=== PATIENT | male | born 1930 | race Caucasian/White ===

== ENCOUNTER 2017-02-21 16:55 | Observation (INO) ==
--- NOTE | 2017-02-21 17:07 | Emergency Department Note ---
Disposition Clinical Impression: Palpitations, Sinus tachycardia Chest pain Qualifiers: Chest pain type: other chest pain Qualified Code(s): R07.89 - Other chest pain Disposition: Still a Patient Condition: Fair Referrals: Ari Shine Jr, MD [Primary Care Provider] - Forms: ED Satisfaction Letter Time of Disposition: 19:12 Arrhythmia/Palpitations HPI - General Chief Complaint: ED Arrhythmia/Palpitations Stated Complaint: Palpaitions Time Seen by Provider: 02/21/17 16:56 Source: patient Mode of arrival: ambulatory Limitations: no limitations Nursing Notes Reviewed: Yes Vital Signs Reviewed: Yes - History of Present Illness HPI Narrative: 86-year-old male history of CAD s/p 1 stent and hypertension presents with palpitations. States for the past 3 days he has notices heart skips a beat and races. For the past 3 hours his noticed some associated dyspnea. Every time his heart races he coughs and feels much better. States it has been more intermittent and frequent. He denies any lightheadedness or syncope. Denies any chest pain. Denies any recent illness, cough, rhinorrhea, abdominal pain or nausea vomiting. He denies any other complaints. Denies any prior history of this. 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 On evaluation in the room patient is normal sinus rhythm 67 bpm. Within 5 minutes his heart rate immediately jump to 126 bpm, he states he starts to feel the palpitations. I asked him the cough and he immediately came back down. He states these episodes have been more frequent. He currently appears in no acute distress. Pt Subjective Complaint: rapid heart beat, "heart racing", irregular heart beat - Related Data Previous Rx's Medication Instructions Recorded Plavix 75 mg PO DAILY #30 03/17/15 Simvastatin 20 mg PO HS #30 03/17/15 Toprol Xl 50 mg PO DAILY #0 03/17/15 Allergies Allergy/AdvReac Type Severity Reaction Status Date / Time No Known Allergies Allergy Verified 09/27/16 04:54 All systems ED: reviewed and negative except as stated. Review of Systems: As Per HPI Constitutional: Denies: fever, chills ENT ED: Denies: congestion, dysphagia Cardiovascular: Reports: palpitations. Denies: chest pain, dyspnea on exertion Respiratory: Reports: dyspnea. Denies: cough Gastrointestinal: Denies: abdominal pain, nausea, vomiting Genitourinary: Denies: urgency, dysuria Musculoskeletal: Denies: back pain, neck pain Integumentary: Denies: rash, abrasion Neurological: Denies: headache Psychiatric: Denies: anxiety, depression Past Medical History - Past Medical History Attestation: Yes The following information was validated with the patient. Source: patient Medical history: Reports: arthritis, coronary artery disease, GERD, GI bleed, hyperlipidemia, hypertension, kidney stones, myocardial infarction, renal disease, other Surgical history: Reports: other (Abdominal laparotomy) Psychiatric history: Reports: no psych history - Social History Smoking Status: Never smoker Smokeless Tobacco Status: No Alcohol use: Reports: rarely Drug use: Reports: none Physical Exam - General Limitations: no limitations General appearance: alert, in no apparent distress - Head Head exam: atraumatic, normocephalic, normal inspection - Eye Eye exam: Present: normal appearance, PERRL, EOMI - ENT ENT exam: normal exam, normal oropharynx, mucous membranes moist - Neck Neck exam: Present: normal inspection, full ROM, trachea midline - Chest Chest inspection: Present: normal inspection, symmetric chest wall rise - Respiratory Respiratory exam: Present: normal lung sounds bilaterally. Absent: respiratory distress, wheezes - Cardiovascular Cardiovascular exam: Present: tachycardia, irregular rhythm, normal heart sounds. Absent: systolic murmur, diastolic murmur - Abdominal Exam Abdominal exam: Present: soft, Non-Tender, normal bowel sounds. Absent: tenderness, distention, guarding, rebound, rigidity - Extremities Exam Extremities exam: Present: normal inspection, full ROM, normal capillary refill. Absent: tenderness, pedal edema - Back Exam Back exam: Present: normal inspection, full ROM. Absent: tenderness - Neurological Exam Neurological exam: Present: alert, oriented X3 - Psychiatric Psychiatric exam: Present: normal affect, normal mood - Skin Skin exam: Present: warm, dry, intact, normal color Course - Reevaluation(s) Reevaluation #1: Patient continues to appear no acute distress. He continues to intermittently go in and out sinus rhythm and sinus tachycardia. Daughters in the room reports 5-6 years ago he had similar symptoms and was offered ablation versus medication. At this time concern that this may be more of a supraventricular tachycardia. Will check troponin, TSH, chemistries and likely admit. Patient remains hemodynamically stable. Reevaluation #2: Awaiting chemistries. Troponin is negative. CXR is unremarkable. He continues to go in and out of this tachycardia. Will sign out to nighttime physicians Dr. Leyva and Dr. Guidry for follow up of labs and admission. Time: 19:12 Vital Signs Temperature 98 F 02/21/17 16:57 Pulse Rate 80 02/21/17 16:57 Respiratory Rate 20 02/21/17 16:57 Blood Pressure 169/84 02/21/17 16:57 O2 Sat by Pulse Oximetry 100 02/21/17 16:57 Temperature 98 F 02/21/17 16:57 Pulse Rate 61 02/21/17 19:02 Respiratory Rate 12 02/21/17 19:02 Blood Pressure 183/92 02/21/17 19:02 O2 Sat by Pulse Oximetry 99 02/21/17 19:02 Oxygen Delivery Oxygen Delivery Nasal Cannula Arrhythmia/Palpitations - MDM Narrative Medical decision making narrative: I examined this patient and my medical decision-making was reviewed with the Resident Physician. I agree with the documented findings, disposition and treatment plan as described except to the extent set forth below. Patient was seen and evaluated on arrival with EMS and Dr. Hernandez, I agree with his evaluation and management plan, supervised the care of the patient's stay. Patient comes in today with what he feels a fluttering in his chest. He denies any chest pain or shortness of breath he said it only lasts for a little while he says when he coughs that we use ago away and that happened in the squad. Here he has a normal sinus rhythm on the monitor now but then it speeds up and it looks like a sinus tach and then he coughs and it goes away. He denies any calf pain denies a shortness of breath or vomiting. No new medications. He has had cardiac issues in the past and sees cardiology here. We will order a workup on him reassess him. He initially had 3 EKGs showing sinus rhythm and sinus tach. And he can feel it when he goes in to the sinus tach. Denies chest pain. This documentation is done with the assistance of [employer] dictation software. Though efforts have been made to ensure accuracy, there may be inaccuracies in truck striker or spelling or other typographical errors. 1800 hrs.: Family thinks he has had this in the past before. Were waiting on labs come back. The labs informed us that the chemistry analyzer is down. So primarily really get a CBC and a troponin at this time. Chest X-Ray 02/21/17 16:58 IMPRESSION: Negative portable chest. D/ / Jaguar Solorzano MD / Jaguar Solorzano MD Interpreting Provider: Jaguar Solorzano MD 1820 hrs.: Chest x-ray is back and unremarkable. Chemistry analyzer is still down. We will speak with hospitalist for admission. Impression is chest pressure and palpitations, rule out arrhythmia and ACS. - Medical Records Medical records reviewed: Yes I reviewed the patient's medical records. - Lab Data Lab results reviewed: Yes I reviewed the patient's lab results. Result diagrams: 02/21/17 17:26 02/21/17 17:26 Lab Results 02/21/17 02/21/17 02/21/17 Range/Units 17:26 17:26 17:26 WBC 6.2 (4.3-11.1) K/mcL RBC 4.56 (4.19-5.50) M/mcL Hgb 12.1 L (12.9-16.9) g/dL Hct 38.4 (37.5-50.1) % MCV 84.2 (83.0-100.0) fL MCH 26.5 L (28.0-33.3) pg MCHC 31.5 L (31.6-35.5) g/dL RDW 14.7 H (11.5-14.5) % Plt Count 174 (140-400) K/mcL MPV 9.9 (9.4-12.4) fL Immature Gran % 0.3 (0-4) % Seg Neutrophils % 61.1 % Lymphocytes % 23.6 % Monocytes % 8.8 % Eosinophils % 5.9 % Basophils % 0.3 % Neutrophils # 3.8 (1.6-8.9) K/mcL Lymphocytes # 1.5 (0.6-4.6) K/mcL Monocytes # 0.6 (0.0-1.3) K/mcL Eosinophils # 0.4 (0.0-0.6) K/mcL Basophils # 0.0 (0.0-0.2) K/mcL PT 11.7 (9.4-12.1) Seconds INR 1.1 APTT 28.3 (26.0-36.0) Seconds Sodium 141 (136-145) mEq/L Potassium 3.8 (3.5-4.5) mEq/L Chloride 110 H (98-109) mEq/L Carbon Dioxide 23 (19-29) mEq/L BUN 13 (8-26) mg/dL Creatinine 1.06 (0.72-1.25) mg/dL Est GFR ( Amer) > 60 (> 60) Est GFR (Non-Af Amer) > 60 (> 60) BUN/Creatinine Ratio 12 (6-26) Glucose 117 H (70-99) mg/dL Calculated Osmolality 293 (280-300) Calcium 8.7 (8.6-10.8) mg/dL Troponin I (0-0.03) ng/mL 02/21/17 Range/Units 17:26 WBC (4.3-11.1) K/mcL RBC (4.19-5.50) M/mcL Hgb (12.9-16.9) g/dL Hct (37.5-50.1) % MCV (83.0-100.0) fL MCH (28.0-33.3) pg MCHC (31.6-35.5) g/dL RDW (11.5-14.5) % Plt Count (140-400) K/mcL MPV (9.4-12.4) fL Immature Gran % (0-4) % Seg Neutrophils % % Lymphocytes % % Monocytes % % Eosinophils % % Basophils % % Neutrophils # (1.6-8.9) K/mcL Lymphocytes # (0.6-4.6) K/mcL Monocytes # (0.0-1.3) K/mcL Eosinophils # (0.0-0.6) K/mcL Basophils # (0.0-0.2) K/mcL PT (9.4-12.1) Seconds INR APTT (26.0-36.0) Seconds Sodium (136-145) mEq/L Potassium (3.5-4.5) mEq/L Chloride (98-109) mEq/L Carbon Dioxide (19-29) mEq/L BUN (8-26) mg/dL Creatinine (0.72-1.25) mg/dL Est GFR ( Amer) (> 60) Est GFR (Non-Af Amer) (> 60) BUN/Creatinine Ratio (6-26) Glucose (70-99) mg/dL Calculated Osmolality (280-300) Calcium (8.6-10.8) mg/dL Troponin I 0.01 (0-0.03) ng/mL - Radiology Data Radiology results reviewed: Yes I reviewed the patient's radiology results. Chest X-Ray 02/21/17 16:58 IMPRESSION: Negative portable chest. D/ / Jaguar Solorzano MD / Jaguar Solorzano MD Interpreting Provider: Jaguar Solorzano MD - EKG Data EKG attestation: Yes I reviewed and interpreted this EKG. EKG results narrative: We have obtained 3 EKGs. 1st EKG performed 1702 sinus rhythm 67 bpm normal axis , good R wave progression, no ST elevations or depression. No T wave inversions. Intervals are within normal limits. Another EKG performed immediately after 1704 sinus tachycardia [address] depression seen and septal leads with T wave inversion in inferior leads. Then another EKG performed 1705 shows sinus tachycardia [address] depression the T waves are upright in inferior leads. There is no old EKG for comparison. S.B.A.R. - S.B.A.R. Situation: Demographics, MOA Background: Presenting Complaint, Relevant PMH, Meds, & Allergies Assessment: Vital Signs, Course and respsone to treatment, Exam Concerns, Patient/Family Expectation, Pertinant Lab Results, Outstanding Labs Recommendation: Barrier(s) to disposition, Recommendation based on pending studies, treatments, or consults S.B.A.R. Report Given to: Dr. Leyva and Chao S.B.ATatum Repor Time: 19:00
[2017-02-21 17:34] LABS: Basophils % 0.3 %; Eosinophils # 0.4 K/mcL (0.0-0.6); Eosinophils % 5.9 %; Hematocrit 38.4 % (37.5-50.1); Hemoglobin 12.1 g/dL (12.9-16.9); Immature Granulocytes % 0.3 % (0-4); Lymphocytes # 1.5 K/mcL (0.6-4.6); Lymphocytes % 23.6 %; Mean Corpuscular HGB Conc 31.5 g/dL (31.6-35.5); Mean Corpuscular Hemoglobin 26.5 pg (28.0-33.3); Mean Corpuscular Volume 84.2 fL (83.0-100.0); Mean Platelet Volume 9.9 fL (9.4-12.4); Monocytes # 0.6 K/mcL (0.0-1.3); Monocytes % 8.8 %; Neutrophils # 3.8 K/mcL (1.6-8.9); Platelet Count 174 K/mcL (140-400); Red Blood Count 4.56 M/mcL (4.19-5.50); Red Cell Distribution Width 14.7 % (11.5-14.5); Segmented Neutrophils % 61.1 %
[2017-02-21 17:40] LABS: INR 1.1; Prothrombin Time 11.7 Seconds (9.4-12.1)
[2017-02-21 17:43] LABS: Activated Partial Thrombo Time 28.3 Seconds (26.0-36.0)
[2017-02-21 19:04] LABS: BUN/Creatinine Ratio 12 (6-26); Blood Urea Nitrogen 13 mg/dL (8-26); Calcium 8.7 mg/dL (8.6-10.8); Carbon Dioxide 23 mEq/L (19-29); Chloride 110 mEq/L (98-109); Glucose 117 mg/dL (70-99); Osmolality,Calculated 293 (280-300); Potassium 3.8 mEq/L (3.5-4.5); Sodium 141 mEq/L (136-145); eGFR For African Americans > 60 (> 60); eGFR For Non-African Americans > 60 (> 60)
--- NOTE | 2017-02-21 19:27 | Emergency Department Note ---
START Narrative - START START: I examined this patient and my medical decision-making was reviewed with the Resident Physician. I agree with the documented findings, disposition and treatment plan as described except to the extent set forth below. 86-year-old male presented with palpitations and EKG abnormalities. Patient had some ST depressions. Coughing seems to help relieve his tachycardia transiently. His labs are unremarkable. Chest x-ray was negative. I feel based on the EKG undermines the patient needs anticoagulated for tonight. Lovenox.
[2017-02-21 19:28] LABS: Thyroid Stimulating Hormone 0.712 mcIU/mL (0.350-4.840)
[2017-02-21] MEDS ORDERED: Aspirin 325 MG TABLET PO ONE (19:28)
[2017-02-21] MEDS ORDERED: *HR* Enoxaparin 80 MG/0.8 ML SYRINGE SQ STA (19:29)
--- NOTE | 2017-02-21 19:48 | Emergency Department Note ---
Disposition Clinical Impression: Palpitations, Sinus tachycardia Chest pain Qualifiers: Chest pain type: other chest pain Qualified Code(s): R07.89 - Other chest pain Disposition: Admitted As Inpatient Condition: Good Referrals: Ari Shine Jr, MD [Primary Care Provider] - Forms: ED Satisfaction Letter General Adult HPI - General Chief complaint: ED Arrhythmia/Palpitations Stated complaint: Palpaitions Time Seen by Provider: 02/21/17 16:56 Source: patient Mode of arrival: ambulatory Limitations: no limitations Nursing Notes Reviewed: Yes Vital Signs Reviewed: Yes - History of Present Illness Pain Scale: 0 - Related Data Previous Rx's Medication Instructions Recorded Plavix 75 mg PO DAILY #30 03/17/15 Simvastatin 20 mg PO HS #30 03/17/15 Toprol Xl 50 mg PO DAILY #0 03/17/15 Allergies Allergy/AdvReac Type Severity Reaction Status Date / Time No Known Allergies Allergy Verified 09/27/16 04:54 Constitutional: Denies: fever, chills ENT ED: Denies: congestion, dysphagia Cardiovascular: Reports: palpitations. Denies: chest pain, dyspnea on exertion Respiratory: Reports: dyspnea. Denies: cough Gastrointestinal: Denies: abdominal pain, nausea, vomiting Genitourinary: Denies: urgency, dysuria Musculoskeletal: Denies: back pain, neck pain Integumentary: Denies: rash, abrasion Neurological: Denies: headache Psychiatric: Denies: anxiety, depression Past Medical History - Past Medical History Medical history: Reports: arthritis, coronary artery disease, GERD, GI bleed, hyperlipidemia, hypertension, kidney stones, myocardial infarction, renal disease, other Surgical history: Reports: other (Abdominal laparotomy) Psychiatric history: Reports: no psych history - Social History Smoking Status: Never smoker Smokeless Tobacco Status: No Alcohol use: Reports: rarely Drug use: Reports: none Physical Exam - General Limitations: no limitations General appearance: alert, in no apparent distress Course Course Narrative: Patient was taken over at signout from the day team. Patient has had intermittent palpitations over the last week that have resolved with coughing. Patient's initial EKG shows sinus rhythm with ventricular rate of 67. No significant ST changes. Patient's repeat EKG during an episode shows sinus tachycardia at a rate of 126. No specific SVT. Mild ST depressions in the lateral leads. T-wave inversions in the inferior leads. EKG is narrow complex. Symptoms resolved after coughing episode. Patient's electrolyte panel is pending. The patient's electrodes are normal he will need admitted to the hospitalist service for further evaluation of the possible etiology. electrolytes normal. Patient does have some mild depressions at the tachycardic rate of 126. We will give the patient aspirin and a dose of Lovenox. Patient has been admitted to the hospitalist service. Dr. Ardon. - Consultations Consultation #1: Discussed with hospital at 1935. Patient accepted for admission. Vital Signs Temperature 98 F 02/21/17 16:57 Pulse Rate 80 02/21/17 16:57 Respiratory Rate 20 02/21/17 16:57 Blood Pressure 169/84 02/21/17 16:57 O2 Sat by Pulse Oximetry 100 02/21/17 16:57 Temperature 98 F 02/21/17 16:57 Pulse Rate 61 02/21/17 19:02 Respiratory Rate 12 02/21/17 19:02 Blood Pressure 183/92 02/21/17 19:02 O2 Sat by Pulse Oximetry 99 02/21/17 19:02 Oxygen Delivery Oxygen Delivery Nasal Cannula Medical Decision Making - Lab Data Result diagrams: 02/21/17 17:26 02/21/17 17:26 Lab Results 02/21/17 02/21/17 02/21/17 Range/Units 17:26 17:26 17:26 WBC 6.2 (4.3-11.1) K/mcL RBC 4.56 (4.19-5.50) M/mcL Hgb 12.1 L (12.9-16.9) g/dL Hct 38.4 (37.5-50.1) % MCV 84.2 (83.0-100.0) fL MCH 26.5 L (28.0-33.3) pg MCHC 31.5 L (31.6-35.5) g/dL RDW 14.7 H (11.5-14.5) % Plt Count 174 (140-400) K/mcL MPV 9.9 (9.4-12.4) fL Immature Gran % 0.3 (0-4) % Seg Neutrophils % 61.1 % Lymphocytes % 23.6 % Monocytes % 8.8 % Eosinophils % 5.9 % Basophils % 0.3 % Neutrophils # 3.8 (1.6-8.9) K/mcL Lymphocytes # 1.5 (0.6-4.6) K/mcL Monocytes # 0.6 (0.0-1.3) K/mcL Eosinophils # 0.4 (0.0-0.6) K/mcL Basophils # 0.0 (0.0-0.2) K/mcL PT 11.7 (9.4-12.1) Seconds INR 1.1 APTT 28.3 (26.0-36.0) Seconds Sodium 141 (136-145) mEq/L Potassium 3.8 (3.5-4.5) mEq/L Chloride 110 H (98-109) mEq/L Carbon Dioxide 23 (19-29) mEq/L BUN 13 (8-26) mg/dL Creatinine 1.06 (0.72-1.25) mg/dL Est GFR ( Amer) > 60 (> 60) Est GFR (Non-Af Amer) > 60 (> 60) BUN/Creatinine Ratio 12 (6-26) Glucose 117 H (70-99) mg/dL Calculated Osmolality 293 (280-300) Calcium 8.7 (8.6-10.8) mg/dL Troponin I (0-0.03) ng/mL TSH 0.712 (0.350-4.840) mcIU/mL 02/21/17 Range/Units 17:26 WBC (4.3-11.1) K/mcL RBC (4.19-5.50) M/mcL Hgb (12.9-16.9) g/dL Hct (37.5-50.1) % MCV (83.0-100.0) fL MCH (28.0-33.3) pg MCHC (31.6-35.5) g/dL RDW (11.5-14.5) % Plt Count (140-400) K/mcL MPV (9.4-12.4) fL Immature Gran % (0-4) % Seg Neutrophils % % Lymphocytes % % Monocytes % % Eosinophils % % Basophils % % Neutrophils # (1.6-8.9) K/mcL Lymphocytes # (0.6-4.6) K/mcL Monocytes # (0.0-1.3) K/mcL Eosinophils # (0.0-0.6) K/mcL Basophils # (0.0-0.2) K/mcL PT (9.4-12.1) Seconds INR APTT (26.0-36.0) Seconds Sodium (136-145) mEq/L Potassium (3.5-4.5) mEq/L Chloride (98-109) mEq/L Carbon Dioxide (19-29) mEq/L BUN (8-26) mg/dL Creatinine (0.72-1.25) mg/dL Est GFR ( Amer) (> 60) Est GFR (Non-Af Amer) (> 60) BUN/Creatinine Ratio (6-26) Glucose (70-99) mg/dL Calculated Osmolality (280-300) Calcium (8.6-10.8) mg/dL Troponin I 0.01 (0-0.03) ng/mL TSH (0.350-4.840) mcIU/mL
--- NOTE | 2017-02-21 21:41 | Internal Med History&Physical ---
Date of Encounter: 02/21/17 Time of Encounter: 22:00 Assessment and Plan (1) Stable angina Current visit: Yes Status: Acute Typical chest pain symptoms with location being substernal, occurring with exertion, and relieved with ASA. Last echocardiogram done on 10/25/16 shows LVEF of 55% with mild MR, TR, pulmonic regurgitation, and pulmonary HTN. Nuclear stress test done on 10/25/16 shows negative for ischemia but did show some signs of an ectopic atrial rhythm at rest. Current EKG shows no signs of ST elevations. There are some lateral ST-depressions shows are old when compared to EKG from 09/27/16. Troponin was negative. EKG shows evidence of possible atrial flutter vs. atrial tachycardia. KARI score of 3. Wells criteria score of 1.5 or low risk group: 1.3% chance of PE in an ED population. - Consult ot cardiology. - Lovenox 40 mg SQ qd. - Cardiac telemetry. - Continue home BP meds of plavix, toprol, and diltiazem. - Trend troponins. (2) Arrhythmia Current visit: Yes Status: Acute Possible atrial flutter vs. atrial tachycardia. - Consult to cardiology. - Resumed home BP meds of toprol and diltiazem. - Ordered Magnesium lab level. Qualifiers: Arrhythmia type: unspecified cardiac arrhythmia Qualified Code(s): I49.9 - Cardiac arrhythmia, unspecified (3) Palpitations Current visit: Yes Status: Acute (4) Hypertension Current visit: No Status: Acute BP of 184/90 on examination. - Resumed home BP meds of Diltiazem and toprol. - Added lisinopril 10 mg PO qd. Qualifiers: Hypertension type: unspecified Qualified Code(s): I10 - Essential (primary ) hypertension (5) Coronary artery disease Current visit: No Status: Acute Risk factors for CAD inlcude age, history of HTN, history of HLD, and history of previous PA. Qualifiers: Coronary Disease-Associated Artery/Lesion type: jena artery [place] vs. transplanted heart: jena heart Associated angina: with stable angina Qualified Code(s): I25.118 - Atherosclerotic heart disease of jena coronary artery with other forms of angina pectoris (6) Hyperlipidemia Current visit: Yes Status: Acute - Lipid panel ordered. - Home med of Simvastatin resumed. Qualifiers: Hyperlipidemia type: unspecified Qualified Code(s): E78.5 - Hyperlipidemia , unspecified (7) DVT prophylaxis Current visit: Yes Status: Acute - On lovenox 40 mg SQ qd. Internal Medicine - H&P: HPI Chief complaint: Palpitations Admitted From: Emergency Dept History of present illness: Mr. Craven is a 86 year old male with a PMHx of previous PA (1992), CAD, HTN, and HLD, with a PSHx of coronary artery stent (2009) and gastric bypass that presents for palpitations for 1 week. He describes his symptoms occurring at rest, lasts less than a minute, and is immediately relieved with coughing. He says he his palpitations have been progressively becoming more frequent, citing up to 10 episodes a day. He denies any chest pain, SOB, syncope, dizziness, vision changes, TERRY, or light-headedness with these episodes. Patient also began to mention that on separate incidents that he usually experiences minor chest pain and SOB after walking a mile. The pain is pressure like and is relieved after he takes ASA. Patient was given lovenox and ASA in the ED. Patient's senior manager asset protection is Dr. Barbosa. Past Med Surg Social Fam HX - Past Medical History Medical history: arthritis, coronary artery disease, GERD, GI bleed, hyperlipidemia, hypertension, kidney stones, myocardial infarction, renal disease, other Psychiatric history: no psych history - Past Surgical History Surgical History: other - Social History Smoking Status: Never smoker Smokeless Tobacco Status: No Alcohol use: rarely Drug use: none - Family History Mother Adopted: No Family Member Ethnicity: Non- Living Status: Cause of : heart attack Hx Family Cardiac Disorders: Yes (mother, heart attack) Hx Family Respiratory Disorders: No Hx Family Cancer: No Hx Family GI Disorders: No Hx Family Genitourinary Disorders: No Hx Family Endocrine Disorder: No Hx Family Musculoskeletal Disorders: No Hx Family Neuromuscular Disorders: No Hx Family Neurologic Disorders: No Hx Family HEENT Disorders: No Hx Family Autoimmune Disorders: No Hx Family Reproductive Disorders: No Hx Family Psychosocial Disorders: No Hx Family Medical Disorders: No Internal Medicine - H&P: Meds Clopidogrel [Plavix] 75 mg PO DAILY 02/21/17 [History] Diltiazem HCl [Diltiazem ER] 120 mg PO DAILY 02/21/17 [History] Metoprolol Succinate 50 mg PO DAILY 02/21/17 [History] [place] 80 mg PO DAILY 02/21/17 [History] Simvastatin [Zocor] 40 mg PO DAILY 02/21/17 [History] 3 Allergy/AdvReac Type Severity Reaction Status Date / Time No Known Allergies Allergy Verified 02/21/17 19:58 All Systems PM: A 10-system review of systems was performed and is negative for pertinent findings except as documented above in the HPI. - Constitutional Constitutional: no fever(s), no weakness - EENT Eyes: no blurry vision - Cardiovascular Cardiovascular ROS IM: chest pain (With exertion. ), dyspnea on exertion, palpitations, no lightheadedness, no syncope - Respiratory Respiratory: dyspnea on exertion - Gastrointestinal Gastrointestinal: no abdominal pain, no change in bowel habits, no constipation , no diarrhea, no dyspepsia, no heartburn, no loose stools, no nausea, no vomiting - Neurological Neurological ROS: no dizziness, no headache(s), no weakness - Constitutional Vitals: Temp Pulse Resp BP Pulse Ox 98.2 F 63 16 183/93 98 02/21/17 20:43 02/21/17 20:43 02/21/17 20:43 02/21/17 20:43 02/21/17 20:43 General appearance: Present: A&O X 3, pleasant, no acute distress, answers questions appropriately - Eye Eye exam: Present: EOMI, PERRL - ENT ENT exam: Present: mucous membranes moist - Respiratory Respiratory exam: Present: CTAB. Absent: rales, rhonchi, wheezes, tachypnea - Cardiovascular Cardiovascular exam: Present: RRR, +S1, +S2. Absent: JVD, tachycardia - GI/Abdominal GI/Abdominal exam: Present: normal bowel sounds, soft. Absent: distended, guarding, rebound, tenderness - Extremities Exam Extremities exam: Present: full ROM, normal capillary refill, normal inspection , radial pulses palpable and symmetrical. Absent: cyanotic, pedal edema, tenderness Additional comments: Pedal pulses intact and symmetrical bilaterally. - Neurological Exam Neurological exam: Present: alert, CN II-XII intact, oriented X3, reflexes normal, no focal deficits, strengths equal and symetr throughout. Absent: motor sensory deficit, speech deficit Internal Med - H&P Results - Labs CBC & Chem 7: 02/21/17 17:26 02/21/17 17:26
[2017-02-21 21:58] LABS: Chol/HDL Ratio 3.7 (0-4.9)
[2017-02-21] MEDS: Diltiazem CD (24hr) 120 MG CAPSULE PO SCH (22:04)
[2017-02-21] MEDS: Metoprolol XL (24 HR) Succ 50 MG TAB.ER.24H PO SCH (22:04)
--- NOTE | 2017-02-21 22:11 | Event Note ---
Date of Encounter: 02/21/17 Time of Encounter: 22:07 Patient seen and examined with manager medical affairs. Patient presents with episodes of palpitations the past 2 days. These were captured during electrocardiogram possibilities include atrial flutter versus atrial tachycardia. It seems he had not an event about 6 years ago and was started on antiarrhythmic medications. Patient is on metoprolol 50 mg and Cardizem 120 mg daily will continue. He had received a dose of full dose Lovenox in the emergency room. Appreciate cardiology input to decide on this cardiac rhythm whetaher he needs long-term anticoagulants are not if this is atrial flutter. Patient also has history of chronic stable angina. He experiences a 10 minute episodes of retrosternal chest pain after he walks a mile every day. He is on Plavix. He had prior PCI 8 years ago. Full code. Observation admisison
[2017-02-22 01:43] LABS: BUN/Creatinine Ratio 13 (6-26); Blood Urea Nitrogen 13 mg/dL (8-26); Calcium 8.5 mg/dL (8.6-10.8); Carbon Dioxide 21 mEq/L (19-29); Chloride 111 mEq/L (98-109); Glucose 120 mg/dL (70-99); Magnesium 1.8 mg/dL (1.6-2.6); Osmolality,Calculated 295 (280-300); Potassium 3.7 mEq/L (3.5-4.5); Sodium 142 mEq/L (136-145); eGFR For African Americans > 60 (> 60); eGFR For Non-African Americans > 60 (> 60)
[2017-02-22 01:51] LABS: Basophils % 0.3 %; Eosinophils # 0.3 K/mcL (0.0-0.6); Eosinophils % 4.9 %; Hematocrit 34.5 % (37.5-50.1); Hemoglobin 10.7 g/dL (12.9-16.9); Immature Granulocytes % 0.3 % (0-4); Lymphocytes % 29.6 %; Mean Corpuscular Hemoglobin 26.2 pg (28.0-33.3); Mean Corpuscular Volume 84.6 fL (83.0-100.0); Mean Platelet Volume 9.8 fL (9.4-12.4); Monocytes # 0.6 K/mcL (0.0-1.3); Monocytes % 8.4 %; Neutrophils # 3.8 K/mcL (1.6-8.9); Platelet Count 172 K/mcL (140-400); Red Blood Count 4.08 M/mcL (4.19-5.50); Red Cell Distribution Width 14.8 % (11.5-14.5); Segmented Neutrophils % 56.5 %
[2017-02-22] MEDS ORDERED: *HR* Enoxaparin 40 MG/0.4 ML SYRINGE SQ SCH ×2 (06:00→08:00)
[2017-02-22] MEDS ORDERED: Enoxaparin Weight Dosing SQ SCH (06:00)
[2017-02-22] MEDS ORDERED: *HR* Enoxaparin 80 MG/0.8 ML SYRINGE SQ SCH (08:00)
--- NOTE | 2017-02-22 10:33 | Electrophysiology Consult Note ---
Date of Encounter: 02/22/17 Time of Encounter: 10:25 Assessment and Plan (1) PAT (paroxysmal atrial tachycardia) Current Visit: Yes Status: Acute Has a long history, diagnosed several years ago. Has been given cardizem in past but does not think he is taking it. Would recommend restarting. Discussion w patient/family: The assessment and plan as outlined above was discussed with the patient and/or family members who expressed understanding and agreement. All questions were answered. Thank you for involving us in the care of your patient. Please call with any questions. History of Present Illness Consult date: 02/22/17 Requesting physician: Dea Jarrell Consult reason: Palpitations Chief complaint: Palpitations History of present illness: Mr. Craven is a 86 year old male with a history of CAD, HTN and atrial tachycardia. He presented with paplitations which he has had for several years , he has a history of ectopic atrial tachycardia. He has been prescribed cardizem in the past but believes he stopped taking it. Past Med Surg Social Fam HX - Past Medical History Medical history: arthritis, coronary artery disease, GERD, GI bleed, hyperlipidemia, hypertension, kidney stones, myocardial infarction, renal disease, other Psychiatric history: no psych history - Past Surgical History Surgical History: other - Social History Smoking Status: Never smoker Smokeless Tobacco Status: No Alcohol use: rarely Drug use: none - Family History Mother Adopted: No Family Member Ethnicity: Non- Living Status: Cause of : heart attack Hx Family Cardiac Disorders: Yes (mother, heart attack) Hx Family Respiratory Disorders: No Hx Family Cancer: No Hx Family GI Disorders: No Hx Family Genitourinary Disorders: No Hx Family Endocrine Disorder: No Hx Family Musculoskeletal Disorders: No Hx Family Neuromuscular Disorders: No Hx Family Neurologic Disorders: No Hx Family HEENT Disorders: No Hx Family Autoimmune Disorders: No Hx Family Reproductive Disorders: No Hx Family Psychosocial Disorders: No Hx Family Medical Disorders: No Medications and Allergies Clopidogrel [Plavix] 75 mg PO DAILY 02/21/17 [History] Diltiazem HCl [Diltiazem ER] 120 mg PO DAILY 02/21/17 [History] Metoprolol Succinate 50 mg PO DAILY 02/21/17 [History] Saw [place] 80 mg PO DAILY 02/21/17 [History] Simvastatin [Zocor] 40 mg PO DAILY 02/21/17 [History] 3 Allergy/AdvReac Type Severity Reaction Status Date / Time No Known Allergies Allergy Verified 02/21/17 19:58 All Systems Review: A 10-system review of systems was performed and is negative for pertinent findings except as documented above in the HPI. Physical Examination Vital Signs, Last 4 Hours Temp Pulse Resp BP Pulse Ox 02/22/17 07:01 98.6 F 59 16 137/69 96 General: Conversant, No Apparent Distress HEENT: Atraumatic, Normocephaly, Mucus Membranes Moist Neck: No JVD, Normal carotid pulses Cardiac: Reg Rate and Rhythm, Normal S1 and S2, No Murmur Lungs: Normal Breath Sounds, No Wheeze, Rales, Rhonchi Neuro: Alert and responsive, No focal deficits noted Abdomen: Soft, Non-Tender Skin: No rashes noted on visualized skin Extremities: No Clubbing, No Cyanosis, No Edema, Normal Pulses Results 02/22/17 00:24 02/22/17 00:24 Lab Results 02/22/17 02/22/17 02/22/17 00:24 00:24 00:24 WBC 6.7 Hgb 10.7 L Hct 34.5 L Plt Count 172 Sodium 142 Potassium 3.7 Chloride 111 H Carbon Dioxide 21 BUN 13 Creatinine 1.00 Glucose 120 H Calcium 8.5 L Magnesium 1.8 Troponin I 0.02 02/22/17 05:13 WBC Hgb Hct Plt Count Sodium Potassium Chloride Carbon Dioxide BUN Creatinine Glucose Calcium Magnesium Troponin I 0.01 - EKG Interpretation EKG results cardiology: other (Atrial tachycardia) Consult Discharge Plan - Plan Referrals: Ari Shine Jr, MD [Primary Care Provider] -
[2017-02-22 10:46] VITALS: BP 142/70
[2017-02-22] MEDS: Diltiazem CD (24hr) 120 MG CAPSULE PO SCH (11:00)
[2017-02-22] MEDS: Metoprolol XL (24 HR) Succ 50 MG TAB.ER.24H PO SCH (11:02)
--- NOTE | 2017-02-22 15:45 | Discharge Summary ---
Date of Encounter: 02/22/17 Time of Encounter: 15:39 - Discharge Diagnosis (1) Chest pain Priority: Primary Status: Resolved Qualifiers: Chest pain type: unspecified Qualified Code(s): R07.9 - Chest pain, unspecified (2) PAT (paroxysmal atrial tachycardia) Priority: Primary Status: Resolved (3) Coronary artery disease Priority: Secondary Status: Chronic Qualifiers: Coronary Disease-Associated Artery/Lesion type: [place] artery [place] vs. transplanted heart: [place] heart Associated angina: with stable angina Qualified Code(s): I25.118 - Atherosclerotic heart disease of [place] coronary artery with other forms of angina pectoris (4) Hyperlipidemia Priority: Secondary Status: Chronic Qualifiers: Hyperlipidemia type: unspecified Qualified Code(s): E78.5 - Hyperlipidemia , unspecified - Discharge Medications Home Medications: Clopidogrel [Plavix] 75 mg PO DAILY 02/21/17 [History] Diltiazem HCl [Diltiazem ER] 120 mg PO DAILY 02/21/17 [History] Metoprolol Succinate 50 mg PO DAILY 02/21/17 [History] Saw [place] 80 mg PO DAILY 02/21/17 [History] Simvastatin [Zocor] 40 mg PO DAILY 02/21/17 [History] Allergies/Adverse Reactions: 3 Allergy/AdvReac Type Severity Reaction Status Date / Time No Known Allergies Allergy Verified 02/21/17 19:58 Date of admission: 02/21/17 20:08 Primary care physician: Ari Shine Jr, MD Consults: 02/21/17 21:20 Consult to Cardiology [CONS] Routine Comment: Consulting Provider: Cardiology Sandra Reason for Consult: Possible Atrial flutter/atrial tachy. Stable angina. Call Completed: No - Patient Status Disposition: Home, Self-Care Condition: Good - Discharge Instructions Follow Up With: Ari Shine Jr, MD [Primary Care Provider] - Additional Instructions: f/u with your Roulette Dealer Dr. Barbosa in 2 weeks Please continue taking Cardizem. - Diet and Activity Activity: increase activity as tolerated Diet: low salt diet Hospital course: Mr. Craven is a 86 year old male with a PMHx of previous [place] (1992), CAD, HTN, and HLD, with a PSHx of coronary artery stent (2009) and gastric bypass that presents for palpitations for 1 week. He describes his symptoms occurring at rest, lasts less than a minute, and is immediately relieved with coughing. He says he his palpitations have been progressively becoming more frequent, citing up to 10 episodes a day. Pt happened to have sinus tachycardia with HR @ 119. Pt was admitted in the hospital and placed him on surveillance monitor. No acute events noticed on monitor. His serial troponins are negative. Resumed his home medications Metoprolol and Cardizem. Apparently pt stop taking his Cardizem at home which might triggered current episode. Pt was seen by Roulette Dealer who recommend to continue Cardizem and cleared him to go home today. His recent 2D Echo from 11/07 showed preserved LVEF 55%. Will d/c him home in stable condition today. Pt stated he does have Cardizem tabs at home, do not need Rx. - Time Spent with Patient Total time spent providing and/or coordinating discharge services: - Constitutional Vitals: Temp Pulse Resp BP Pulse Ox 97.8 F 57 16 142/70 97 02/22/17 10:45 02/22/17 10:45 02/22/17 10:45 02/22/17 10:45 02/22/17 10:45 General appearance: Present: A&O X 3, pleasant, no acute distress, answers questions appropriately - Head Head exam: Present: atraumatic, normal inspection - Neck Neck exam general surgery: Present: supple - Respiratory Respiratory exam: Present: decreased breath sounds. Absent: respiratory distress, rhonchi, wheezes - Cardiovascular Cardiovascular exam: Present: RRR, +S1, +S2. Absent: systolic murmur - GI/Abdominal GI/Abdominal exam: Present: normal bowel sounds, soft. Absent: rebound, rigid, tenderness - Extremities Exam Extremities exam: Absent: calf tenderness, pedal edema, tenderness - Back Exam Back exam: Absent: CVA tenderness (L), CVA tenderness (R) - Neurological Exam Neurological exam: Present: alert, oriented X3 - Psychiatric Psychiatric exam: Present: normal affect, normal mood
--- NOTE | 2017-02-25 22:27 | Electrocardiograph Report ---
[address] [address] Test Date: 2017-02-21 Pat Name: Jaguar Craven Department: 103 Room: 3B45 Gender: M Psychologist Social: : 1930 Requested By: Jagdeep Hernandez Order Number: [id number] Reading MD: Eugenia Castañeda Measurements Intervals [place] Rate: 67 P: 86 [place]: 189 QRS: 61 QRSD: 101 T: 50 QT: 406 QTc: 421 Interpretive Statements SINUS RHYTHM WITH OCCASIONAL SUPRAVENTRICULAR PREMATURE COMPLEXES MODERATE ST DEPRESSION [0.05+ mV ST DEPRESSION] Electronically Signed On 02-25-2017 22:26:24 EST by Eugenia Castañeda
--- NOTE | 2017-02-25 22:29 | Electrocardiograph Report ---
[address] [place], [place] [address] Test Date: 2017-02-21 Pat Name: Jaguar Craven Department: 103 Room: 3B45 Gender: M Manager Building: : 1930 Requested By: Dea Jarrell Order Number: [id number] Reading MD: Eugenia Castañeda Measurements Intervals [place] Rate: 119 P: 48 [place]: 233 QRS: 56 QRSD: 96 T: 13 QT: 360 QTc: 431 Interpretive Statements SINUS TACHYCARDIA ST DEPRESSION, CONSIDER SUBENDOCARDIAL INJURY [0.1+ mV ST DEPRESSION] Electronically Signed On 02-25-2017 22:27:34 EST by Eugenia Castañeda
== END 2017-02-22 16:08 | disposition home or self-care (01) ==
LOC: 3BNU 16:55 → EMEROO 16:55 → 3BNU 20:30
PROVIDERS: ADMIT Hospitalist; ATTEND Registered Nurse

== ENCOUNTER 2017-06-04 16:56 | Inpatient (IN) ==
--- NOTE | 2017-06-04 17:59 | Emergency Department Note ---
Disposition Clinical Impression: Symptomatic anemia GI bleed Qualifiers: GI bleed type/associated pathology: unspecified gastrointestinal hemorrhage type Qualified Code(s): K92.2 - Gastrointestinal hemorrhage, unspecified Disposition: Admitted As Inpatient Condition: Fair Referrals: Ari Shine Jr, MD [Primary Care Provider] - Forms: ED Satisfaction Letter Time of Disposition: 19:04 General Adult HPI - General Chief complaint: ED Recheck/Abnormal Lab/Rx Stated complaint: Needs Blood per Dr. Shine Time Seen by Provider: 06/04/17 17:25 Source: patient Mode of arrival: ambulatory Limitations: no limitations Nursing Notes Reviewed: Yes Vital Signs Reviewed: Yes - History of Present Illness HPI Narrative: 78-year-old male with significant past medical history of hypertension and previous ulcers needing surgical fixation currently on Plavix presenting to the emergency department with low hemoglobin. Patient had baseline labs completed at his primary care physician and was told he had a hemoglobin of 7.1. Patient has been feeling dizzy and weaker than normal. Patient is alert and oriented 3 in the room with stable vital signs. Patient denies any pain at this time. States when he walks he feels weak and dizzy but beyond that feels at baseline. Patient does state his stools have been darker than normal for the past 2 to three weeks. Pain Scale: 0 - Related Data Home Medications Medication Instructions Recorded Confirmed Clopidogrel [Plavix] 75 mg PO DAILY 02/21/17 02/21/17 Diltiazem HCl [Diltiazem ER] 120 mg PO DAILY 02/21/17 02/21/17 Metoprolol Succinate 50 mg PO DAILY 02/21/17 02/21/17 Saw [place] 80 mg PO DAILY 02/21/17 02/21/17 Simvastatin [Zocor] 40 mg PO DAILY 02/21/17 02/21/17 Allergies Allergy/AdvReac Type Severity Reaction Status Date / Time No Known Allergies Allergy Verified 02/21/17 19:58 All systems ED: reviewed and negative except as stated. Neurological: Reports: weakness, other (dizziness) Past Medical History - Past Medical History Attestation: Yes The following information was validated with the patient. Medical history: Reports: arthritis, coronary artery disease, GERD, GI bleed, hyperlipidemia, hypertension, kidney stones, myocardial infarction, other Surgical history: Reports: other Psychiatric history: Reports: no psych history - Social History Smoking Status: Never smoker Smokeless Tobacco Status: No Alcohol use: Reports: none Drug use: Reports: none Physical Exam - General Limitations: no limitations General appearance: alert, in no apparent distress - Head Head exam: atraumatic, normocephalic, normal inspection - Eye Eye exam: Present: normal appearance. Absent: scleral icterus, conjunctival injection - ENT ENT exam: normal exam, mucous membranes moist - Neck Neck exam: Present: normal inspection, full ROM. Absent: tenderness, meningismus - Chest Chest inspection: Present: normal inspection, symmetric chest wall rise. Absent : tenderness, rash - Respiratory Respiratory exam: Present: normal lung sounds bilaterally. Absent: respiratory distress, wheezes - Cardiovascular Cardiovascular exam: Present: regular rate, normal rhythm, normal heart sounds - Abdominal Exam Abdominal exam: Present: soft, Non-Tender. Absent: distention, guarding, rebound - Rectal Exam Crm Architect present during exam: Yes Rectal exam: Present: normal inspection, normal rectal tone, heme (+) stool - Extremities Exam Extremities exam: Present: normal inspection, full ROM - Neurological Exam Neurological exam: Present: alert, oriented X3 - Psychiatric Psychiatric exam: Present: normal affect, normal mood - Skin Skin exam: Present: pallor Course Course Narrative: 78-year-old male sent to the emergency department for symptomatic anemia. Patient's hemoglobin 7.1 four days ago. We will perform basic lab work including CBC, BMP and type and screen. We will also completely EKG. Bedside stool occult was positive. We will plan to admit the patient for 2 units transfused red blood cells. Pending laboratory analysis. Patient is alert and oriented 3 in the room with stable vital signs. He agrees with this plan. I spoke with the hospitalist on-call Dr. Coles who agrees to accept the patient at this time. Patient is alert and oriented 3 in the room with stable vital signs. He agrees to admission at this time. Vital Signs Temperature 97.5 F L 06/04/17 17:02 Pulse Rate 67 06/04/17 17:02 Respiratory Rate 18 06/04/17 17:02 Blood Pressure 134/89 06/04/17 17:02 O2 Sat by Pulse Oximetry 100 06/04/17 17:02 Temperature 97.5 F L 06/04/17 17:02 Pulse Rate 67 06/04/17 17:02 Respiratory Rate 18 06/04/17 17:02 Blood Pressure 134/89 06/04/17 17:02 O2 Sat by Pulse Oximetry 100 06/04/17 17:02 Oxygen Delivery Oxygen Delivery Room Air Medical Decision Making - Lab Data Result diagrams: 06/04/17 18:10 Lab Results 06/04/17 Range/Units 18:10 Sodium 138 (136-145) mEq/L Potassium 4.2 (3.5-5.1) mEq/L Chloride 108 H (98-107) mEq/L Carbon Dioxide 24 (23-29) mEq/L BUN 20 (8-23) mg/dL Creatinine 1.08 (0.70-1.30) mg/dL Est GFR ( Amer) > 60 (> 60) Est GFR (Non-Af Amer) > 60 (> 60) BUN/Creatinine Ratio 19 (6-26) Glucose 127 H (70-105) mg/dL Calculated Osmolality 290 (280-300) Calcium 9.1 (8.6-10.3) mg/dL - EKG Data EKG #1 EKG attestation: Yes I reviewed and interpreted this EKG. EKG results narrative: Sinus bradycardia with first-degree AV block. 56 bpm. MN interval 213, QRS 98 , QTc 412. No signs of acute ST segment elevation or ischemia.
[2017-06-04 18:26] LABS: Basophils % 0.3 %; Eosinophils % 3.1 %; Immature Granulocytes % 0.1 % (0-4)
[2017-06-04 18:28] LABS: Eosinophils # 0.2 K/mcL (0.0-0.6); Hematocrit 22.5 % (37.5-50.1); Lymphocytes # 1.8 K/mcL (0.6-4.6); Lymphocytes % 26.6 %; Mean Corpuscular HGB Conc 29.3 g/dL (31.6-35.5); Mean Corpuscular Hemoglobin 22.2 pg (28.0-33.3); Mean Corpuscular Volume 75.8 fL (83.0-100.0); Mean Platelet Volume 9.6 fL (9.4-12.4); Monocytes # 0.7 K/mcL (0.0-1.3); Neutrophils # 4.1 K/mcL (1.6-8.9); Platelet Count 238 K/mcL (140-400); Red Blood Count 2.97 M/mcL (4.19-5.50); Red Cell Distribution Width 15.8 % (11.5-14.5); Segmented Neutrophils % 59.9 %
[2017-06-04] MEDS ORDERED: Pantoprazole 40 MG VIAL IVP ONE (18:38)
--- NOTE | 2017-06-04 18:39 | Emergency Department Note ---
START Narrative - START START: I examined this patient and my medical decision-making was reviewed with the Resident Physician. I agree with the documented findings, disposition and treatment plan as described except to the extent set forth below. 86-year-old male presents emergency room for low hemoglobin levels. Patient states he has been pale recently. Has had some dark blood noted in his stool. On rectal exam he was heme positive grossly. His hemoglobin 5 days ago was 7. We will recheck his hemoglobin today and if it remains around 7 will need to transfuse him with 2 units of blood. We will consult with endoscopy as well. This could be from an upper GI bleed likely in the gastric or initial small bowel. Patient will need to be started on Protonix. Patient will get a bolus of Protonix as well as started on an IV drip of Protonix. Critical care time of 35 minutes
[2017-06-04 18:45] LABS: BUN/Creatinine Ratio 19 (6-26); Blood Urea Nitrogen 20 mg/dL (8-23); Calcium 9.1 mg/dL (8.6-10.3); Carbon Dioxide 24 mEq/L (23-29); Chloride 108 mEq/L (98-107); Glucose 127 mg/dL (70-105); Osmolality,Calculated 290 (280-300); Potassium 4.2 mEq/L (3.5-5.1); Sodium 138 mEq/L (136-145); eGFR For African Americans > 60 (> 60); eGFR For Non-African Americans > 60 (> 60)
[2017-06-04] MEDS: Pantoprazole 40 MG in 0.9 % Sodium Chloride Mini Bag 100 ML IVC SCH ×2 (18:49→23:07)
[2017-06-04 19:05] LABS: Hemoglobin 6.6 g/dL (12.9-16.9)
[2017-06-04 19:06] LABS: Hypochromasia Present (Not Present); Platelet Estimate Normal (Normal)
[2017-06-04] MEDS ORDERED: 0.9 % Sodium Chloride 500 ML IV.SOLN IVC ONE (19:24)
--- NOTE | 2017-06-04 19:25 | Emergency Department Note ---
START Narrative - START START: Patient was signed out from Dr. Tejeda and Dr. Guidry. Patient was readmitted for GI bleed and symptomatic anemia, Hgb 6.6, has 2 units of blood ordered.. Page was out to endoscopist at that time. I talked with Dr. peter, discussed presentation and lab results, he is aware of patient and will act as consult. Consult was placed.
--- NOTE | 2017-06-04 20:58 | Internal Med History&Physical ---
Date of Encounter: 06/04/17 Time of Encounter: 20:53 Assessment and Plan (1) CAD (coronary artery disease) Current visit: Yes Status: Chronic And history of angioplasty in the past no chest pain despite severe anemia Qualifiers: Coronary Disease-Associated Artery/Lesion type: [place] artery [place] vs. transplanted heart: [place] heart Associated angina: without angina Qualified Code(s): I25.10 - Atherosclerotic heart disease of [place] coronary artery without angina pectoris (2) GI bleed Current visit: Yes Status: Acute Regular likely upper GI bleed patient had history of gastric ulcer and underwent gastrectomy in the past DR Hollis consulted Qualifiers: GI bleed type/associated pathology: unspecified gastrointestinal hemorrhage type Qualified Code(s): K92.2 - Gastrointestinal hemorrhage, unspecified (3) Symptomatic anemia Current visit: Yes Status: Acute Patient hemoglobin 7.1 receiving blood transfusion in the ER MCV is low we will also start iron supplement (4) Dyslipidemia Current visit: No Status: Chronic (5) Hypertension Current visit: No Status: Chronic Chronic and well controlled Qualifiers: Hypertension type: essential hypertension Qualified Code(s): I10 - Essential (primary) hypertension Internal Medicine - H&P: HPI Chief complaint: gi bleed Admitted From: Emergency Dept Plans for Post Hospital Care: Home History of present illness: Mr. Craven is a 86 year old male Patient with history of anemia, GI bleed in the past underwent gastrectomy, CAD had PTCA in the past, high cholesterol, hypertension, atrial flutter in the past. Patient was seen by the primary physician due to a feeling of dizziness for 2-3 weeks also some dark stool in about 3 weeks hemoglobin was 7.1 and therefore he was admitted emergency room for further evaluation patient had been feeling lightheaded and dizzy rectal exam showed a grossly positive stool he was started on Protonix drip Dr. Hollis been consulted for endoscopy i he s hemodynamically stable at this point. Past Med Surg Social Fam HX - Past Medical History Medical history: arthritis, coronary artery disease, GERD, GI bleed, hyperlipidemia, hypertension, kidney stones, myocardial infarction, other Psychiatric history: no psych history - Past Surgical History Surgical History: other - Social History Smoking Status: Never smoker Smokeless Tobacco Status: No Alcohol use: none Drug use: none - Family History Mother Adopted: No Family Member Ethnicity: Non- Living Status: Hx Family Cardiac Disorders: Yes (mother, heart attack) Hx Family Respiratory Disorders: No Hx Family Cancer: No Hx Family GI Disorders: No Hx Family Endocrine Disorder: No Hx Family Neuromuscular Disorders: No Hx Family Neurologic Disorders: No Hx Family HEENT Disorders: No Hx Family Autoimmune Disorders: No Internal Medicine - H&P: Meds Clopidogrel [Plavix] 75 mg PO DAILY 02/21/17 [History] Diltiazem HCl [Diltiazem ER] 180 mg PO DAILY 06/04/17 [History] Metoprolol Succinate [Toprol Xl] 25 mg PO DAILY 06/04/17 [History] Nitroglycerin [Nitrostat] 0.4 mg SL Q5M PRN 06/04/17 [History] Simvastatin [Zocor] 20 mg PO HS 06/04/17 [History] 3 Allergy/AdvReac Type Severity Reaction Status Date / Time No Known Allergies Allergy Verified 02/21/17 19:58 All Systems PM: A 10-system review of systems was performed and is negative for pertinent findings except as documented above in the HPI. - Constitutional Constitutional: fatigue, lethargy, weakness - EENT Eyes: no change in vision, no discharge, no pain, no photophobia Ears: no ear discharge, no ear pain, no tinnitus Nose, mouth and throat: no dysphagia, no nasal discharge, no neck pain, no sore throat - Cardiovascular Cardiovascular ROS IM: lightheadedness, other, no chest pain, no diaphoresis, no dyspnea, no palpitations, no syncope - Respiratory Respiratory: no cough, no dyspnea, no wheezing, no excessive phlegm production - Gastrointestinal Gastrointestinal: other, no abdominal pain, no diarrhea, no hematemesis, no hematochezia, no melena, no nausea, no vomiting - Musculoskeletal Musculoskeletal ROS IM: no numbness, no tingling - Constitutional Vitals: Temp Pulse Resp BP Pulse Ox 98.1 F 57 16 128/57 100 06/04/17 20:23 06/04/17 20:23 06/04/17 20:23 06/04/17 20:23 06/04/17 20:23 - Head Head exam: Present: atraumatic, normocephalic - Eye Eye exam: Present: PERRL, conjuntiva pink, sclera anicteric Pupils: Present: PERRL - Neck Neck exam general surgery: Present: supple, trachea midline. Absent: lymphadenopathy - Respiratory Respiratory exam: Present: CTAB. Absent: accessory muscle use, rales, rhonchi, wheezes - Cardiovascular Cardiovascular exam: Present: RRR, +S1, +S2. Absent: diastolic murmur, gallop, rubs, systolic murmur - GI/Abdominal GI/Abdominal exam: Present: normal bowel sounds, soft, no peritoneal signs. Absent: distended, tenderness Internal Med - H&P Results - Labs CBC & Chem 7: 06/04/17 18:10 06/04/17 18:10 Labs: Short CBC 06/04/17 Range/Units 18:10 WBC 6.9 (4.3-11.1) K/mcL Hgb 6.6 L (12.9-16.9) g/dL Hct 22.5 L (37.5-50.1) % Plt Count 238 (140-400) K/mcL Neutrophils # 4.1 (1.6-8.9) K/mcL BMP 06/04/17 18:10 Sodium 138 Potassium 4.2 Chloride 108 H Carbon Dioxide 24 BUN 20 Creatinine 1.08 Glucose 127 H Calcium 9.1
[2017-06-04] MEDS ORDERED: Naloxone 0.4 MG/ML INJ IVP PRN (21:05)
[2017-06-04] MEDS ORDERED: Acetaminophen 325 MG TABLET PO PRN (21:05)
[2017-06-04 21:29] LABS: Troponin I < 0.03 ng/mL (< 0.04)
[2017-06-04] MEDS ORDERED: 0.9 % Sodium Chloride 250 ML ONE (23:04)
[2017-06-05] MEDS: 0.9 % Sodium Chloride 1,000 ML IVC SCH ×2 (01:46→14:53)
[2017-06-05] MEDS: Pantoprazole 40 MG in 0.9 % Sodium Chloride Mini Bag 100 ML IVC SCH ×4 (04:11→22:04)
[2017-06-05 04:22] LABS: Basophils % 0.3 %; Eosinophils # 0.3 K/mcL (0.0-0.6); Eosinophils % 3.3 %; Hematocrit 27.3 % (37.5-50.1); Immature Granulocytes % 0.3 % (0-4); Lymphocytes # 2.4 K/mcL (0.6-4.6); Mean Corpuscular HGB Conc 30.4 g/dL (31.6-35.5); Mean Corpuscular Hemoglobin 23.2 pg (28.0-33.3); Mean Corpuscular Volume 76.5 fL (83.0-100.0); Mean Platelet Volume 10.1 fL (9.4-12.4); Monocytes # 0.7 K/mcL (0.0-1.3); Monocytes % 9.1 %; Neutrophils # 4.5 K/mcL (1.6-8.9); Platelet Count 226 K/mcL (140-400); Red Blood Count 3.57 M/mcL (4.19-5.50); Red Cell Distribution Width 16.2 % (11.5-14.5)
[2017-06-05 04:25] LABS: Hemoglobin 8.3 g/dL (12.9-16.9)
[2017-06-05 04:32] LABS: Alanine Aminotransferase 5 Units/L (7-52); Albumin 3.8 g/dL (3.5-5.7); Albumin/Globulin Ratio 1.9 (1.1-2.2); Alkaline Phosphatase 36 Units/L (34-104); Aspartate Amino Transferase 10 Units/L (13-39); BUN/Creatinine Ratio 17 (6-26); Bilirubin,Total 0.8 mg/dL (0.3-1.0); Blood Urea Nitrogen 19 mg/dL (8-23); Calcium 8.7 mg/dL (8.6-10.3); Carbon Dioxide 23 mEq/L (23-29); Chloride 111 mEq/L (98-107); Glucose 86 mg/dL (70-105); Osmolality,Calculated 292 (280-300); Potassium 4.2 mEq/L (3.5-5.1); Sodium 140 mEq/L (136-145); Total Protein 5.8 g/dL (6.4-8.9); eGFR For African Americans > 60 (> 60); eGFR For Non-African Americans > 60 (> 60)
[2017-06-05] MEDS: Diltiazem CD (24hr) 180 MG CAPSULE PO SCH (10:11)
[2017-06-05] MEDS: Metoprolol XL (24 HR) Succ 25 MG TAB.ER.24H PO SCH (10:11)
[2017-06-05 12:02] LABS: Hematocrit 29.4 % (37.5-50.1); Hemoglobin 8.8 g/dL (12.9-16.9)
--- NOTE | 2017-06-05 12:33 | General Surgery Consult Note ---
Date of Encounter: 06/05/17 Time of Encounter: 12:14 History of Present Illness Consult date: 06/04/17 Reason for consult: other (anemia, fatigue, dizziness) Requesting physician: Lane [place] History of present illness: 86-year-old male referred after presenting to the emergency department with progressive fatigue, shortness of breath and profound anemia. H&H on presentation 6.6 and 22.5; platelet count 238,000. Rectal exam described dark stool which was grossly Hemoccult positive. The patient was transfused through the night, receiving 2 units packed red blood cells, H&H this morning 8.8 and 29.4. The patient describes a 3 week period prior to his presentation to [facility] ED with progressive fatigue shortness of breath with minimal activities. He also described "waves of dizziness".He denied any abdominal pain, fevers, chills, nausea, or vomiting. He detected no blood per rectum, his BMs were "dark brown". Since being transfused, the patient feels significantly improved. Past medical history: A remote history of upper GI hemorrhage. Patient underwent an exploratory ciliotomy gastrotomy with suture ligature bleeding ulcer in 1998. 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 Other significant history hypertension, CAD with prior [place], hyperlipidemia, renal stones, and remote history of atrial flutter. Surgical history: Hernia repair in the remote past; gastrotomy/subtotal gastrectomy as described above; exploratory celiotomy with lysis of adhesions and release of small bowel obstruction 2011 Allergies: No known drug allergies Medications: Clopidogrel 75 mg by mouth daily Diltiazem 180 mg by mouth daily Metoprolol 25 mg by mouth daily Simvastatin 20 mg by mouth daily at bedtime Nitroglycerin 0.4 mg sublingually as needed for chest pain Social history: Patient denies any alcohol, tobacco or illicit drug use Physical examination: Elderly male in no acute distress resting comfortably in his hospital bed. The patient is afebrile, currently 98.0; pulse 57 and 59; respirations 1618; blood pressure 159/78. SPO2 on room air 98-99% Skin: Warm, no obvious jaundice Lungs: Clear bilaterally; no obvious abdominal pain on deep inspiration Cardiac: Regular rate, no appreciable murmurs Abdomen: Soft, nontender; no obvious intra-abdominal masses, no rebound. Active bowel sounds. Extremities: No obvious clubbing, cyanosis, or edema. Impression : 86 yo referred for further evaluation of anemia. Review of historical laboratories - demonstrate hemoglobin 12.1 02/21/2017; 10.7 on 02/22/17 ; 7.1 05/30/2017; hemoglobin 6.6 on presentation to the emergency department on . Currently hemoglobin 8.8 following 2 units packed red blood cells. Lengthy discussion with the patient and his attended family. Treatment options include EGD and colonoscopy. The risks of such procedures include Hemorrhage, infection, aspiration, cramping abdominal pain, bloating, and perforation. In the event of a complication such as perforation the patient would require surgery or if significant abnormality is identified this to might require surgical intervention. In this case of the patient's advanced age And medical comorbidities, the risk of surgery is increased. Alternatively, expected follow-up with serial H&H's can be considered. The patient does not wish to consider intervention at this time but will discuss his situation with his family. I will follow along with you. Patient can follow up with me as an outpatient should he decide to defer intervention / invasive diagnostics at this time. Past Med Surg Social Fam HX - Past Medical History Medical history: arthritis, coronary artery disease, GERD, GI bleed, hyperlipidemia, hypertension, kidney stones, myocardial infarction, other Psychiatric history: no psych history - Past Surgical History Surgical History: other - Social History Smoking Status: Never smoker Smokeless Tobacco Status: No Alcohol use: none Drug use: none - Family History Mother Adopted: No Family Member Ethnicity: Non- Living Status: Hx Family Cardiac Disorders: Yes (mother, heart attack) Hx Family Respiratory Disorders: No Hx Family Cancer: No Hx Family GI Disorders: No Hx Family Endocrine Disorder: No Hx Family Neuromuscular Disorders: No Hx Family Neurologic Disorders: No Hx Family HEENT Disorders: No Hx Family Autoimmune Disorders: No Medications and Allergies Clopidogrel [Plavix] 75 mg PO DAILY 02/21/17 [History] Diltiazem HCl [Diltiazem ER] 180 mg PO DAILY 06/04/17 [History] Metoprolol Succinate [Toprol Xl] 25 mg PO DAILY 06/04/17 [History] Nitroglycerin [Nitrostat] 0.4 mg SL Q5M PRN 06/04/17 [History] Simvastatin [Zocor] 20 mg PO HS 06/04/17 [History] 3 Allergy/AdvReac Type Severity Reaction Status Date / Time No Known Allergies Allergy Verified 02/21/17 19:58 Review of Systems All systems PM: The remainder of the systems were reviewed and are negative General Surgery Exam Initial Vital Signs Temp Pulse Resp BP Pulse Ox 97.5 F L 67 18 134/89 100 06/04/17 17:02 06/04/17 17:02 06/04/17 17:02 06/04/17 17:02 06/04/17 17:02 Exam Initial Vital Signs Temp Pulse Resp BP Pulse Ox 97.5 F L 67 18 134/89 100 06/04/17 17:02 06/04/17 17:02 06/04/17 17:02 06/04/17 17:02 06/04/17 17:02 Results - Labs 06/05/17 11:50 06/05/17 03:17 Abnormal lab results RBC 3.57 M/mcL (4.19-5.50) L 06/05/17 03:17 Hgb 8.8 g/dL (12.9-16.9) L 06/05/17 11:50 Hct 29.4 % (37.5-50.1) L 06/05/17 11:50 MCV 76.5 fL (83.0-100.0) L 06/05/17 03:17 MCH 23.2 pg (28.0-33.3) L 06/05/17 03:17 MCHC 30.4 g/dL (31.6-35.5) L 06/05/17 03:17 RDW 16.2 % (11.5-14.5) H 06/05/17 03:17 Hypochromasia Present (Not Present) A 06/04/17 18:10 Chloride 111 mEq/L (98-107) H 06/05/17 03:17 AST 10 Units/L (13-39) L 06/05/17 03:17 ALT 5 Units/L (7-52) L 06/05/17 03:17 Serum Total Protein 5.8 g/dL (6.4-8.9) L 06/05/17 03:17 Globulin 2.0 g/dL (2.4-3.5) L 06/05/17 03:17 Diabetes panel 06/05/17 Range/Units 03:17 Sodium 140 (136-145) mEq/L Potassium 4.2 (3.5-5.1) mEq/L Chloride 111 H (98-107) mEq/L Carbon Dioxide 23 (23-29) mEq/L BUN 19 (8-23) mg/dL Creatinine 1.13 (0.70-1.30) mg/dL Glucose 86 (70-105) mg/dL Calcium 8.7 (8.6-10.3) mg/dL AST 10 L (13-39) Units/L ALT 5 L (7-52) Units/L Alkaline Phosphatase 36 (34-104) Units/L Albumin 3.8 (3.5-5.7) g/dL Calcium panel 06/05/17 Range/Units 03:17 Calcium 8.7 (8.6-10.3) mg/dL Albumin 3.8 (3.5-5.7) g/dL Pituitary panel 06/05/17 Range/Units 03:17 Sodium 140 (136-145) mEq/L Potassium 4.2 (3.5-5.1) mEq/L Chloride 111 H (98-107) mEq/L Carbon Dioxide 23 (23-29) mEq/L BUN 19 (8-23) mg/dL Creatinine 1.13 (0.70-1.30) mg/dL Glucose 86 (70-105) mg/dL Calcium 8.7 (8.6-10.3) mg/dL Adrenal panel 06/05/17 Range/Units 03:17 Sodium 140 (136-145) mEq/L Potassium 4.2 (3.5-5.1) mEq/L Chloride 111 H (98-107) mEq/L Carbon Dioxide 23 (23-29) mEq/L BUN 19 (8-23) mg/dL Creatinine 1.13 (0.70-1.30) mg/dL Glucose 86 (70-105) mg/dL Calcium 8.7 (8.6-10.3) mg/dL Total Bilirubin 0.8 (0.3-1.0) mg/dL AST 10 L (13-39) Units/L ALT 5 L (7-52) Units/L Alkaline Phosphatase 36 (34-104) Units/L Albumin 3.8 (3.5-5.7) g/dL All other labs normal. Consult Discharge Plan - Plan Referrals: Ari Shine Jr, MD [Primary Care Provider] -
--- NOTE | 2017-06-05 15:39 | Internal Med Progress Note ---
Date of Encounter: 06/05/17 Time of Encounter: 11:00 - Assessment and plan (1) GI bleed Current Visit: Yes Status: Acute Assessment and plan: Patient does have a history of upper GI bleed. He underwent an exploratory ciliotomy gastrotomy with suture ligature bleeding ulcer in 1998. 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 He originally presented with a hemoglobin of 6.6 he was given 2 units of PRBCs overnight and hemoglobin is to return to 8.8. We will continue to monitor hemoglobin and transfuse as needed. rectal exam was Hemoccult positive Continue with Protonix 2 surgery has been consulted and did see patient at bedside at this time patient does not wish to consider intervention at this time however we will discuss with his family Qualifiers: GI bleed type/associated pathology: unspecified gastrointestinal hemorrhage type Qualified Code(s): K92.2 - Gastrointestinal hemorrhage, unspecified (2) Symptomatic anemia Current Visit: Yes Status: Acute Assessment and plan: Patient was experiencing progressive fatigue sureness of breath as well as lightheadedness prior to presenting to the ER hemoglobin on presentation was 6.6 he received 2 units of PRBCs hemoglobin improved to 8.8. Symptoms have improved we will continue to monitor hemoglobin and transfuse as needed (3) CAD (coronary artery disease) Current Visit: Yes Status: Chronic Assessment and plan: 1 patient does have a history of CAD he has not expectorated any chest pain despite presence of anemia. We will continue with metoprolol and statin Nitroglycerin as needed for chest pain Qualifiers: Coronary Disease-Associated Artery/Lesion type: [place] artery [place] vs. transplanted heart: [place] heart Associated angina: without angina Qualified Code(s): I25.10 - Atherosclerotic heart disease of [place] coronary artery without angina pectoris (4) Dyslipidemia Current Visit: No Status: Chronic Assessment and plan: Continue with simvastatin (5) Hypertension Current Visit: No Status: Chronic Assessment and plan: 1 presently his blood pressure is controlled will continue with home medications Qualifiers: Hypertension type: essential hypertension Qualified Code(s): I10 - Essential (primary) hypertension (6) DVT prophylaxis Current Visit: No Status: Acute Assessment and plan: 1 SCDs due to anemia - Time Spent With Patient less than 15 minutes - Subjective Interval history: I did see and examine the patient at bedside Presently patient denies any abdominal pain nausea or vomiting. No gross blood in stool. No chest pain or shortness of breath he is hemodynamically stable at this time - Constitutional Vitals: Temp Pulse Resp BP Pulse Ox 98.1 F 60 18 132/56 98 06/05/17 14:58 06/05/17 14:58 06/05/17 14:58 06/05/17 14:58 06/05/17 14:58 General appearance: Present: A&O X 3 - Head Head exam: Present: atraumatic, normocephalic - Eye Eye exam: Present: PERRL, conjuntiva pink, sclera anicteric Pupils: Present: PERRL - Neck Neck exam general surgery: Present: supple, trachea midline. Absent: lymphadenopathy - Respiratory Respiratory exam: Present: CTAB. Absent: accessory muscle use, rales, rhonchi, wheezes - Cardiovascular Cardiovascular exam: Present: RRR, +S1, +S2. Absent: diastolic murmur, gallop, rubs, systolic murmur - GI/Abdominal GI/Abdominal exam: Present: normal bowel sounds, soft, no peritoneal signs. Absent: distended, tenderness - Extremities Exam Extremities exam: Present: warm, radial pulses palpable and symmetrical. Absent : calf tenderness, cyanotic, pedal edema - Neurological Exam Neurological exam: Present: CN II-XII intact, oriented X3, no focal deficits. Absent: pronater drift, facial droop, speech deficit - Skin Skin exam: Present: dry, intact Internal Medicine: Result - Labs CBC & Chem 7: 06/05/17 11:50 06/05/17 03:17 Labs: Short CBC 06/05/17 06/05/17 Range/Units 03:17 11:50 WBC 7.8 (4.3-11.1) K/mcL Hgb 8.3 L D 8.8 L (12.9-16.9) g/dL Hct 27.3 L 29.4 L (37.5-50.1) % Plt Count 226 (140-400) K/mcL Neutrophils # 4.5 (1.6-8.9) K/mcL BMP 06/05/17 03:17 Sodium 140 Potassium 4.2 Chloride 111 H Carbon Dioxide 23 BUN 19 Creatinine 1.13 Glucose 86 Calcium 8.7 Cardiac Enzymes 06/05/17 06/05/17 Range/Units 03:17 09:08 Troponin I < 0.03 < 0.03 (< 0.04) ng/mL Liver Function 15 Range/Units 03:17 Total Bilirubin 0.8 (0.3-1.0) mg/dL AST 10 L (13-39) Units/L ALT 5 L (7-52) Units/L Alkaline Phosphatase 36 (34-104) Units/L Albumin 3.8 (3.5-5.7) g/dL - VTE Documentation of Mechanical Device: Intermittent pneumatic compression device Consult Discharge Plan - Plan Referrals: Ari Shine Jr, MD [Primary Care Provider] -
[2017-06-06] MEDS: Pantoprazole 40 MG in 0.9 % Sodium Chloride Mini Bag 100 ML IVC SCH (03:17)
[2017-06-06 05:13] LABS: Hematocrit 27.9 % (37.5-50.1); Hemoglobin 8.3 g/dL (12.9-16.9)
[2017-06-06 05:28] LABS: BUN/Creatinine Ratio 14 (6-26); Blood Urea Nitrogen 16 mg/dL (8-23); Calcium 8.6 mg/dL (8.6-10.3); Carbon Dioxide 20 mEq/L (23-29); Chloride 111 mEq/L (98-107); Glucose 99 mg/dL (70-105); Osmolality,Calculated 289 (280-300); Potassium 4.3 mEq/L (3.5-5.1); Sodium 139 mEq/L (136-145); eGFR For African Americans > 60 (> 60); eGFR For Non-African Americans 59 (> 60)
[2017-06-06] MEDS ORDERED: Pantoprazole 40 MG VIAL IVP SCH (06:00)
[2017-06-06] MEDS: Diltiazem CD (24hr) 180 MG CAPSULE PO SCH (08:54)
[2017-06-06] MEDS: Metoprolol XL (24 HR) Succ 25 MG TAB.ER.24H PO SCH (08:54)
[2017-06-06 11:44] LABS: Hematocrit 27.5 % (37.5-50.1); Hemoglobin 8.2 g/dL (12.9-16.9)
--- NOTE | 2017-06-06 15:05 | General Surgery Progress Note ---
Date of Encounter: 06/06/17 Time of Encounter: 15:03 Subjective Narrative: General Surgery - The patient is voicing no complaints. He is feeling well. The patient remains afebrile, most recently 97.9, pulse 64 bowel he was notably tachycardic early this morning at 104; respiratory rate 18, blood pressure has been stable ranging from 123/56-147/64 H&H also stable - currently 8.2/27.5 The patient does not wish to undergo EGD or colonoscopy at this time. If patient remains stable - he may be discharged and follow up with me as outpatient in 2-3 weeks with repeat H&H. Objective Vital Signs - Last 8 Hours Temp Pulse Resp BP Pulse Ox 06/06/17 11:12 97.9 F 64 18 147/64 98 06/06/17 07:14 98.1 F 62 16 123/56 98 Intake and Output 06/05/17 06/06/17 06/06/17 23:59 07:59 15:59 Intake Total 100 / 100 100 / 100 360 / 360 Output Total 550 / 550 350 / 350 Balance 100 / 100 -450 / -450 10 / 10 Intake: IV Fluids 100 / 100 100 / 100 Protonix 40 MG In 0.9 % Sodium 100 / 100 100 / 100 Chloride (Mini-Bag +) 100 ML @ 20 mls/hr IVC .Q5H [facility] Rx#: [id number] Oral 360 / 360 Output: Urine 550 / 550 350 / 350 Other: Meal Lunch Percent of Meal Consumed 100% Weight 78.564 kg Patient Weight 06/06/17 23:59 Weight 78.564 kg - Labs 06/06/17 11:31 06/06/17 03:39 Diabetes panel 06/06/17 Range/Units 03:39 Sodium 139 (136-145) mEq/L Potassium 4.3 (3.5-5.1) mEq/L Chloride 111 H (98-107) mEq/L Carbon Dioxide 20 L (23-29) mEq/L BUN 16 (8-23) mg/dL Creatinine 1.16 (0.70-1.30) mg/dL Glucose 99 (70-105) mg/dL Calcium 8.6 (8.6-10.3) mg/dL Calcium panel 06/06/17 Range/Units 03:39 Calcium 8.6 (8.6-10.3) mg/dL Pituitary panel 06/06/17 Range/Units 03:39 Sodium 139 (136-145) mEq/L Potassium 4.3 (3.5-5.1) mEq/L Chloride 111 H (98-107) mEq/L Carbon Dioxide 20 L (23-29) mEq/L BUN 16 (8-23) mg/dL Creatinine 1.16 (0.70-1.30) mg/dL Glucose 99 (70-105) mg/dL Calcium 8.6 (8.6-10.3) mg/dL Adrenal panel 06/06/17 Range/Units 03:39 Sodium 139 (136-145) mEq/L Potassium 4.3 (3.5-5.1) mEq/L Chloride 111 H (98-107) mEq/L Carbon Dioxide 20 L (23-29) mEq/L BUN 16 (8-23) mg/dL Creatinine 1.16 (0.70-1.30) mg/dL Glucose 99 (70-105) mg/dL Calcium 8.6 (8.6-10.3) mg/dL - VTE Documentation of Mechanical Device: Intermittent pneumatic compression device Consult Discharge Plan - Plan Referrals: Ari Shine Jr, MD [Primary Care Provider] -
--- NOTE | 2017-06-06 15:15 | Discharge Summary ---
Date of Encounter: 06/06/17 Time of Encounter: 15:11 - Discharge Diagnosis (1) GI bleed Priority: Primary Status: Acute Comments: 1 hemoglobin is stable 8.2 -he was seen by surgery offered EGD colonoscopy however patient declines at this time he will be seen as an outpatient- Dr Hollis in 2-3 weeks he will also have a repeat H&H at that time which has been ordered Patient will stop his Plavix placed on baby aspirin per cardiology recommendation-patient was given prescription for baby aspirin Qualifiers: GI bleed type/associated pathology: unspecified gastrointestinal hemorrhage type Qualified Code(s): K92.2 - Gastrointestinal hemorrhage, unspecified (2) Symptomatic anemia Priority: Primary Status: Acute Comments: 1 this has resolved patient has been ambulating and not experiencing any lightheadedness or dizziness with positional changes (3) CAD (coronary artery disease) Priority: Secondary Status: Chronic Comments: We will DC Plavix and continue with baby aspirin continuous statin and beta bianka Qualifiers: Coronary Disease-Associated Artery/Lesion type: [place] artery [place] vs. transplanted heart: [place] heart Associated angina: without angina Qualified Code(s): I25.10 - Atherosclerotic heart disease of [place] coronary artery without angina pectoris (4) Dyslipidemia Priority: Secondary Status: Chronic Comments: Continue with statin (5) Hypertension Priority: Secondary Status: Chronic Comments: Presently controlled Qualifiers: Hypertension type: essential hypertension Qualified Code(s): I10 - Essential (primary) hypertension Hospital course: Mr. Craven is a 86 year old male past medical history of anemia GI bleed CAD with stent placement in the past atrial tachycardia in the past high cholesterol hypertension. Patient was seen by primary physician he had been experiencing weakness and dizziness over the past 2-3 weeks he also had some dark stools. Lab work was checked he was found to be 7.1 he was sent to the ER for evaluation hemoglobin in ER was 6.6 rectal exam did show grossly positive stool. He was initiated on Protonix. His Plavix was held he was typed and screened for 2 units of PRBCs and transfused. He was seen by Dr. hollis for consult of endoscopy however patient has declined any intervention at this time. His hemoglobin has improved he is 8.2 today denies any dizziness or lightheadedness he is not tachycardic. He is eating and drinking without any difficulty. I did speak with cardiology concerning Plavix,He advised to stop Plavix for now and place patient on baby aspirin. I did review medication change with the patient advised him to follow-up with cardiology and PCP since these providers know him best and can adjust medication as needed. Also advised patient to follow-up with Dr. hollis in 2-3 weeks he is to also have a repeat H&H in 2 -3 weeks. Patient verbalized understanding he is ready for discharge. Discharge discussed with: patient Time spent discussing smoking cessation with patient: 3 to 10 minutes - Time Spent with Patient Total time spent providing and/or coordinating discharge services: - Discharge Medications Prescriptions: Aspirin [Adult Aspirin Regimen] 81 mg PO DAILY #30 tablet. Home Medications: Diltiazem HCl [Diltiazem ER] 180 mg PO DAILY 06/04/17 [History] Metoprolol Succinate [Toprol Xl] 25 mg PO DAILY 06/04/17 [History] Nitroglycerin [Nitrostat] 0.4 mg SL Q5M PRN 06/04/17 [History] Simvastatin [Zocor] 20 mg PO HS 06/04/17 [History] Aspirin [Adult Aspirin Regimen] 81 mg PO DAILY #30 tablet. 06/06/17 [Rx] Allergies/Adverse Reactions: 3 Allergy/AdvReac Type Severity Reaction Status Date / Time No Known Allergies Allergy Verified 02/21/17 19:58 Date of admission: 06/04/17 23:53 Primary care physician: Ari Shine Jr, MD Discharging clinician: Roberta Radford Anticipated date of discharge: 06/06/17 - Constitutional Vitals: Temp Pulse Resp BP Pulse Ox 97.9 F 64 18 147/64 98 06/06/17 11:12 06/06/17 11:12 06/06/17 11:12 06/06/17 11:12 06/06/17 11:12 General appearance: Present: A&O X 3 - Head Head exam: Present: atraumatic, normocephalic - Eye Eye exam: Present: PERRL, conjuntiva pink, sclera anicteric Pupils: Present: PERRL - Neck Neck exam general surgery: Present: supple, trachea midline. Absent: lymphadenopathy - Respiratory Respiratory exam: Present: CTAB. Absent: accessory muscle use, rales, rhonchi, wheezes - Cardiovascular Cardiovascular exam: Present: RRR, +S1, +S2. Absent: diastolic murmur, gallop, rubs, systolic murmur - GI/Abdominal GI/Abdominal exam: Present: normal bowel sounds, soft, no peritoneal signs. Absent: distended, tenderness - Extremities Exam Extremities exam: Present: warm, radial pulses palpable and symmetrical. Absent : calf tenderness, cyanotic, pedal edema - Neurological Exam Neurological exam: Present: CN II-XII intact, oriented X3, no focal deficits. Absent: pronater drift, facial droop, speech deficit - Skin Skin exam: Present: dry, intact - Patient Status Disposition: Home, Self-Care Condition: Fair Functional capacity at discharge: independent ambulation Overall status at discharge: patient is progressing back to baseline - Ambulatory Orders Ambulatory Orders: Hemoglobin and Hematocrit [HEME] Time Frame: 2 Weeks, Facility: [facility], Location: Lab - Discharge Instructions Instructions: Anemia (GEN) Follow Up With: Ari Shine Jr, MD [Primary Care Provider] - Denny Hollis MD [Non-Partnered Physician] - Enrique Castañeda MD [Partnered Physician] - - Diet and Activity Activity: increase activity as tolerated Diet: advance to your usual diet - VTE Documentation of Mechanical Device: Intermittent pneumatic compression device
[2017-06-06 15:56] VITALS: BP 127/67
--- NOTE | 2017-06-10 08:11 | Electrocardiograph Report ---
[place] [id number] Test Date: 2017-06-04 Pat Name: Jaguar Craven Department: 104 Room: 3B Gender: M Choral Teacher: IDRIS : 1930 Requested By: Arnie Guidry Order Number: [id number] Reading MD: Pillo Kaufman DO Measurements Intervals [place] Rate: 56 P: 80 PA: 213 QRS: 55 QRSD: 98 T: 65 QT: 420 QTc: 412 Interpretive Statements SINUS BRADYCARDIA WITH MARKED SINUS ARRHYTHMIA WITH FIRST DEGREE AV BLOCK NONSPECIFIC ST-T CHANGES Electronically Signed On 06-10-2017 8:07:55 EDT by Pillo Kaufman DO
== END 2017-06-06 17:55 | disposition home or self-care (01) | DRG 378 ==
LOC: EMEROO 16:56 → 3BNU 16:56
PROVIDERS: ADMIT Registered Nurse; ATTEND Registered Nurse

== ENCOUNTER 2017-12-03 23:00 | Observation (INO) ==
[2017-12-03 23:38] LABS: Basophils % 0.2 %; Eosinophils # 0.3 K/mcL (0.0-0.6); Eosinophils % 5.4 %; Hematocrit 32.4 % (37.5-50.1); Hemoglobin 9.7 g/dL (12.9-16.9); Immature Granulocytes % 0.3 % (0-4); Lymphocytes # 1.7 K/mcL (0.6-4.6); Lymphocytes % 26.3 %; Mean Corpuscular HGB Conc 29.9 g/dL (31.6-35.5); Mean Corpuscular Hemoglobin 22.6 pg (28.0-33.3); Mean Corpuscular Volume 75.3 fL (83.0-100.0); Mean Platelet Volume 9.7 fL (9.4-12.4); Monocytes # 0.6 K/mcL (0.0-1.3); Monocytes % 9.8 %; Neutrophils # 3.7 K/mcL (1.6-8.9); Platelet Count 189 K/mcL (140-400); Red Cell Distribution Width 20.3 % (11.5-14.5)
[2017-12-04 00:05] LABS: INR 1.1; Prothrombin Time 12.2 Seconds (9.4-12.1)
[2017-12-04 00:08] LABS: Activated Partial Thrombo Time 25.2 Seconds (26.0-36.0)
[2017-12-04 00:10] LABS: BUN/Creatinine Ratio 14 (6-26); Blood Urea Nitrogen 18 mg/dL (8-23); Calcium 9.1 mg/dL (8.6-10.3); Carbon Dioxide 21 mEq/L (23-29); Chloride 108 mEq/L (98-107); Glucose 116 mg/dL (70-105); Osmolality,Calculated 285 (280-300); Potassium 5.1 mEq/L (3.5-5.1); Sodium 136 mEq/L (136-145); Troponin I < 0.03 ng/mL (< 0.04); eGFR For Non-African Americans 54 (> 60)
[2017-12-04 00:18] LABS: Thyroid Stimulating Hormone 2.501 mcIU/mL (0.340-5.600)
--- NOTE | 2017-12-04 00:54 | Emergency Department Note ---
Disposition Clinical Impression: Palpitations Disposition: Admitted As Inpatient Condition: Fair Referrals: Ari Shine Jr, MD [Primary Care Provider] - Forms: ED Satisfaction Letter Arrhythmia/Palpitations HPI - General Chief Complaint: ED Arrhythmia/Palpitations Stated Complaint: irregular heart beat Time Seen by Provider: 12/03/17 23:19 Source: patient Limitations: no limitations Nursing Notes Reviewed: Yes Vital Signs Reviewed: Yes - History of Present Illness HPI Narrative: 87-year-old male presents emergency Department with concerns of near syncope and palpitations. Patient states he has had similar issues over the past 6 months however they are generally short-lived and do not make him feel like he is going to pass out. Today he noticed that he had palpitations that made him diaphoretic and near syncopal. He states they lasted longer than they have in the past. Patient is resting comfortably in the emergency department. Upon standing to use the commode he developed a heart rate of 1:15 but did not become symptomatic with this. Patient denied fever, chills, vomiting, diarrhea , abdominal pain, rash. Patient is supposed to take diltiazem to treat his palpitations however he has not been compliant with the medications over the past few weeks. - Related Data Home Medications Medication Instructions Recorded Confirmed Diltiazem HCl [Diltiazem ER] 180 mg PO DAILY 06/04/17 06/04/17 Metoprolol Succinate [Toprol Xl] 25 mg PO DAILY 06/04/17 06/04/17 Nitroglycerin [Nitrostat] 0.4 mg SL Q5M PRN 06/04/17 06/04/17 Simvastatin [Zocor] 20 mg PO HS 06/04/17 06/04/17 Previous Rx's Medication Instructions Recorded Aspirin [Adult Aspirin Regimen] 81 mg PO DAILY #30 tablet. 06/06/17 Iron SUCROSE Complex [Venofer] 200 mg IV ONCE #1 vial 09/19/17 Allergies Allergy/AdvReac Type Severity Reaction Status Date / Time No Known Allergies Allergy Verified 02/21/17 19:58 All systems ED: reviewed and negative except as stated. Review of Systems: As Per HPI Past Medical History - Past Medical History Attestation: Yes The following information was validated with the patient. Source: patient Medical history: Reports: coronary artery disease, GERD, GI bleed, hyperlipidemia, hypertension, kidney stones, myocardial infarction, other Surgical history: Reports: herniorrhaphy, other Psychiatric history: Reports: no psych history - Social History Smoking Status: Former smoker Smokeless Tobacco Status: No Alcohol use: Reports: occasionally Drug use: Reports: none Physical Exam General: Alert and in no acute distress Skin: Warm, dry, intact Head: Normocephalic and atraumatic Neck: Supple, trachea midline and no tenderness Cardiovascular: RRR, no murmur, normal perfusion Respiratory: CTAB, no wheezing, cough, or respiratory distress Musculoskeletal: Normal strength, no tenderness, swelling or deformity GI: Soft, nontender, nondistended. Bowel sounds present Neuro: A&O to person, place, time and situation. No focal deficits noted on exam Psychiatric: cooperative and appropriate mood and affect. - General Limitations: no limitations General appearance: alert, in no apparent distress Course Vital Signs Temperature 97.8 F 12/03/17 23:03 Pulse Rate 62 12/03/17 23:03 Respiratory Rate 18 12/03/17 23:03 Blood Pressure 118/89 12/03/17 23:03 O2 Sat by Pulse Oximetry 98 12/03/17 23:03 Temperature 97.8 F 12/03/17 23:03 Pulse Rate 62 12/03/17 23:03 Respiratory Rate 18 12/03/17 23:03 Blood Pressure 118/89 12/03/17 23:03 O2 Sat by Pulse Oximetry 98 12/03/17 23:03 Oxygen Delivery Oxygen Delivery Room Air Arrhythmia/Palpitations - MDM Narrative Medical decision making narrative: Patient will be admitted to the hospital for further care and evaluation of his palpitations as they have become more severe - Medical Records Medical records reviewed: Yes I reviewed the patient's medical records. - Lab Data Lab results reviewed: Yes I reviewed the patient's lab results. Result diagrams: 12/03/17 23:25 12/03/17 23:25 Lab Results 12/03/17 12/03/17 12/03/17 Range/Units 23:25 23:25 23:25 WBC 6.3 (4.3-11.1) K/mcL RBC 4.30 (4.19-5.50) M/mcL Hgb 9.7 L (12.9-16.9) g/dL Hct 32.4 L (37.5-50.1) % MCV 75.3 L (83.0-100.0) fL MCH 22.6 L (28.0-33.3) pg MCHC 29.9 L (31.6-35.5) g/dL RDW 20.3 H (11.5-14.5) % Plt Count 189 (140-400) K/mcL MPV 9.7 (9.4-12.4) fL Immature Gran % 0.3 (0-4) % Seg Neutrophils % 58.0 % Lymphocytes % 26.3 % Monocytes % 9.8 % Eosinophils % 5.4 % Basophils % 0.2 % Neutrophils # 3.7 (1.6-8.9) K/mcL Lymphocytes # 1.7 (0.6-4.6) K/mcL Monocytes # 0.6 (0.0-1.3) K/mcL Eosinophils # 0.3 (0.0-0.6) K/mcL Basophils # 0.0 (0.0-0.2) K/mcL PT 12.2 H (9.4-12.1) Seconds INR 1.1 APTT 25.2 L (26.0-36.0) Seconds Sodium 136 (136-145) mEq/L Potassium 5.1 (3.5-5.1) mEq/L Chloride 108 H (98-107) mEq/L Carbon Dioxide 21 L (23-29) mEq/L BUN 18 (8-23) mg/dL Creatinine 1.26 (0.70-1.30) mg/dL Est GFR ( Amer) > 60 (> 60) Est GFR (Non-Af Amer) 54 L (> 60) BUN/Creatinine Ratio 14 (6-26) Glucose 116 H (70-105) mg/dL Calculated Osmolality 285 (280-300) Calcium 9.1 (8.6-10.3) mg/dL Troponin I < 0.03 (< 0.04) ng/mL TSH 2.501 (0.340-5.600) mcIU/mL - Radiology Data Radiology results reviewed: Yes I reviewed the patient's radiology results. - EKG Data EKG attestation: Yes I reviewed and interpreted this EKG. EKG results narrative: 2307 sinus bradycardia with a rate of 59 without evidence of STEMI or other dysrhythmia, QTC 397, QRS 104 0044 normal sinus rhythm with a rate of 63 without evidence of STEMI or other dysrhythmia, QTC 434, QRS 102
[2017-12-04] MEDS ORDERED: Nitroglycerin 0.4 MG TAB.SUBL SL PRN (02:32)
--- NOTE | 2017-12-04 03:42 | Internal Med History&Physical ---
Date of Encounter: 12/04/17 Time of Encounter: 03:39 Internal Medicine - H&P: HPI Chief complaint: Palpitations Admitted From: Home Plans for Post Hospital Care: Home History of present illness: Jaguar Craven is an 87-year-old man with a history of coronary artery disease, hypertension, dyslipidemia and anemia who was previously seen for a GI bleed at which time clopidogrel was discontinued while he remained on aspirin who presents with a complaint of palpitations and near syncope. He states that 4 months he has been having palpitations that are short-lived and he was prescribed both diltiazem and metoprolol however he stopped taking diltiazem because it made him feel on well and his heart rate became too low but remains on 25 mg metoprolol. He says he was sitting at home at rest after dinner when he suddenly felt his heart racing and when he stood up he felt even more dizzy and lightheaded and was passing out but this never occurred. He called EMS and on route to the ER the palpitations had resolved and on arrival here he was seen to be normal sinus rhythm with rates fluctuating between 58 and 63. It is documented however that there was a moment when he stood up to use the bathroom that his heart rate jumped to 115 however he remained asymptomatic from this. His lab work was grossly unremarkable and is admitted for further observation. On my assessment he is ambulatory and reports feeling well. He states that the palpitations, and go and are never prolonged however this last episode from last night was longer than usual. He denies any chest pain and dyspnea. Past Med Surg Social Fam HX - Past Medical History Medical history: coronary artery disease, GERD, GI bleed, hyperlipidemia, hypertension, kidney stones, myocardial infarction, other Additional medical history: CAD. CATARACTS Psychiatric history: no psych history - Past Surgical History Surgical History: herniorrhaphy, other Additional surgical history: EXPLORATORY LAPAROTOMY. LYSIS OF ADHESIONS. SMALL BOWEL OBSTRUCTION. HEART STENTS. GASTRECTOMY - Social History Smoking Status: Former smoker Smokeless Tobacco Status: No Alcohol use: occasionally Drug use: none - Family History Brother Hx Family Cardiac Disorders: Yes Mother Adopted: No Family Member Ethnicity: Non- Living Status: Hx Family Cardiac Disorders: Yes Hx Family Respiratory Disorders: No Hx Family Cancer: No Hx Family GI Disorders: No Hx Family Endocrine Disorder: No Hx Family Neuromuscular Disorders: No Hx Family Neurologic Disorders: No Hx Family HEENT Disorders: No Hx Family Autoimmune Disorders: No Internal Medicine - H&P: Meds Diltiazem HCl [Diltiazem ER] 180 mg PO DAILY 06/04/17 [History] Metoprolol Succinate [Toprol Xl] 25 mg PO DAILY 06/04/17 [History] Nitroglycerin [Nitrostat] 0.4 mg SL Q5M PRN 06/04/17 [History] Simvastatin [Zocor] 20 mg PO HS 06/04/17 [History] Aspirin [Adult Aspirin Regimen] 81 mg PO DAILY #30 tablet. 06/06/17 [Rx] Iron SUCROSE Complex [Venofer] 200 mg IV ONCE #1 vial 09/19/17 [Rx] 3 Allergy/AdvReac Type Severity Reaction Status Date / Time No Known Allergies Allergy Verified 02/21/17 19:58 All Systems PM: A 10-system review of systems was performed and is negative for pertinent findings except as documented above in the HPI. - Constitutional Vitals: Temp Pulse Resp BP Pulse Ox 97.7 F 59 15 174/79 98 12/04/17 02:52 12/04/17 02:52 12/04/17 02:52 12/04/17 02:52 12/04/17 03:27 Exam: Vitals: Reviewed General: Well-developed sitting up out of bed to chair in no acute distress Skin: Warm and supple HEENT: Moist mucous membranes. No conjunctivae pallor. Neck: No lymphadenopathy. No JVD. No carotid bruits. No palpable thyroid. Chest: Normal thoracic expansion. Normal breath sounds. Clear to auscultation. Heart: Normal S1 & S2; rhythmic. No rubs or murmurs. Abdomen: Non-distended, soft and non-tender to palpation. No peritoneal reaction. Extremities: No clubbing, cyanosis or edema. No calf tenderness. Normal distal pulses. Neurological: Awake, alert and oriented to person, place and time. No focal deficits. Psych: Affect appropriate. Internal Med - H&P Results - Labs CBC & Chem 7: 12/03/17 23:25 12/03/17 23:25 - Assessment and plan (1) Palpitations Current Visit: Yes Status: Acute Assessment and plan: Unclear etiology as we have not been able to detect the rib him on a strip and on this episode it resolved before his arrival to the ER. EKG is reviewed by me show normal sinus rhythm although with a tendency to into bradycardia. We will monitor on telemetry. Diltiazem held however can remain on metoprolol if heart rate remains above 60. We will obtain another troponin to ensure ischemia is not an inciting factor. May benefit from cardiology follow-up and may require a Holter monitoring. (2) Coronary artery disease Current Visit: Yes Status: Chronic Assessment and plan: Stable without clinical and electrocardiographic signs of acute ischemia. Continue low-dose aspirin and statin therapy. Qualifiers: Coronary Disease-Associated Artery/Lesion type: [place] artery [place] vs. transplanted heart: [place] heart Associated angina: without angina Qualified Code(s): I25.10 - Atherosclerotic heart disease of [place] coronary artery without angina pectoris (3) Dyslipidemia Current Visit: Yes Status: Chronic Assessment and plan: Continue statin. (4) Hypertension Current Visit: Yes Status: Chronic Assessment and plan: We will observe trend and assess need for further antihypertensive agents Qualifiers: Hypertension type: essential hypertension Qualified Code(s): I10 - Essential (primary) hypertension (5) Anemia Current Visit: Yes Status: Chronic Assessment and plan: Hemoglobin stable and better than previous values. Should be on iron supplementation after last GI bleed. Qualifiers: Anemia type: iron deficiency Iron deficiency anemia type: chronic blood loss Qualified Code(s): D50.0 - Iron deficiency anemia secondary to blood loss (chronic) - Time Spent With Patient Total time spent is greater than 50% in coordination of care (as documented) at patient's floor/unit and/or counseling patient: Greater than 35 minutes
[2017-12-04] MEDS: *HR* Heparin 5,000 UNIT/ML VIAL SQ SCH ×3 (06:44→21:59)
[2017-12-04] MEDS ORDERED: Metoprolol XL (24 HR) Succ 25 MG TAB.ER.24H PO SCH ×2 (09:00→09:56)
[2017-12-04] MEDS: Aspirin Enteric Coated 81 MG Tablet PO SCH (10:14)
[2017-12-04] MEDS: Metoprolol XL (24 HR) Succ 25 MG TAB.ER.24H PO SCH (10:15)
--- NOTE | 2017-12-04 10:27 | Cardiology Consult Note ---
Date of Encounter: 12/04/17 Time of Encounter: 09:30 Assessment and Plan (1) PAT (paroxysmal atrial tachycardia) Current Visit: No Status: Resolved Patient with known history of paroxysmal atrial tachycardia who does not seem to be able to tolerate Cardizem. Heart rate currently ranges from 60 to 120/min. We will offer him electrophysiologic study and ablation. Meanwhile increase Toprol from 25 mg daily to 50 mg daily. Observe blood pressure and heart rate for tolerability. Please obtain transthoracic echocardiogram. Patient to follow-up with Dr. Enrique Castañeda (office inspector) as soon as possible. (2) CAD (coronary artery disease), [place] coronary artery Current Visit: Yes Status: Chronic No chest pain or shortness of breath. Has excellent exercise tolerance. Continue aspirin, statin, beta bianka. Qualifiers: [place] vs. transplanted heart: [place] heart Associated angina: without angina Qualified Code(s): I25.10 - Atherosclerotic heart disease of [place] coronary artery without angina pectoris Discussion w patient/family: The assessment and plan as outlined above was discussed with the patient and/or family members who expressed understanding and agreement. All questions were answered. Thank you for involving us in the care of your patient. Please call with any questions. History of Present Illness Consult date: 12/04/17 Requesting physician: Yokasta Valles Consult reason: Palpitations Chief complaint: Palpitations History of present illness: Mr. Craven is a pleasant 87 year old gentleman with a history of hypertension, paroxysmal atrial tachycardia being followed by our EP service in the office and was placed on Cardizem 180mg as well as Toprol 25mg daily, admitted last night with a complaint of palpitations and near syncope. He reported that he was sitting at home after dinner when he suddenly felt his heart racing and when he stood up he felt even more dizzy and lightheaded and was close to passing out but did not. He called EMS and en route to the ER the palpitations had resolved and on arrival he was in sinus rhythm at a controlled rate. He was last seen in the office in May 2017 which was when his cardizem dose was decreased from twice daily dosing to once daily due to fatigue (pt was taking it once daily). He has however stopped taking the cardizem in the past 2 months as it made him feel dizzy but has remained on the Toprol 25 mg daily. He has history of CAD s/p stenting of circumflex coronary artery in 2011. His last echo was in October 2016 which showed normal ejection fraction with no significant valvular heart disease. He also had pharmacological nuclear stress test October of 2016 which was was negative for ischemia. Possible old inferior and inferolateral infarct. EF was 68%. Past Med Surg Social Fam HX - Past Medical History Medical history: coronary artery disease, GERD, GI bleed, hyperlipidemia, hypertension, kidney stones, myocardial infarction, other Additional medical history: CAD. CATARACTS Psychiatric history: no psych history - Past Surgical History Surgical History: herniorrhaphy, other Additional surgical history: EXPLORATORY LAPAROTOMY. LYSIS OF ADHESIONS. SMALL BOWEL OBSTRUCTION. HEART STENTS. GASTRECTOMY - Social History Smoking Status: Former smoker Smokeless Tobacco Status: No Alcohol use: occasionally Drug use: none - Family History Brother Hx Family Cardiac Disorders: Yes Mother Adopted: No Family Member Ethnicity: Non- Living Status: Hx Family Cardiac Disorders: Yes Hx Family Respiratory Disorders: No Hx Family Cancer: No Hx Family GI Disorders: No Hx Family Endocrine Disorder: No Hx Family Neuromuscular Disorders: No Hx Family Neurologic Disorders: No Hx Family HEENT Disorders: No Hx Family Autoimmune Disorders: No Medications and Allergies Diltiazem HCl [Diltiazem ER] 180 mg PO DAILY 06/04/17 [History] Metoprolol Succinate [Toprol Xl] 25 mg PO DAILY 06/04/17 [History] Nitroglycerin [Nitrostat] 0.4 mg SL Q5M PRN 06/04/17 [History] Simvastatin [Zocor] 20 mg PO HS 06/04/17 [History] Aspirin [Adult Aspirin Regimen] 81 mg PO DAILY #30 tablet. 06/06/17 [Rx] 3 Allergy/AdvReac Type Severity Reaction Status Date / Time No Known Allergies Allergy Verified 12/04/17 08:38 All Systems Review: The remainder of the systems were reviewed and are negative - Constitutional Constitutional: no anorexia, no fever(s), no malaise, no weakness - EENT Eyes: no blurred vision Nose, mouth and throat: no bleeding gums, no epistaxis - Cardiovascular Cardiovascular: palpitations, no chest pain at rest, no chest pain with exertion , no diaphoresis, no dyspnea at rest, no leg edema, no orthopnea - Respiratory Respiratory: no cough, no wheezing - Gastrointestinal Gastrointestinal: no abdominal pain - Musculoskeletal Musculoskeletal: no abnormal gait - Integumentary Integumentary: no unusual bruising - Neurological Neurological: no abnormal speech, no dizziness, no focal weakness - Psychiatric Psychiatric: no anxiety - Hematological/Lymphatic Hematologic/Lymphatic: no easy bleeding Physical Examination General: Conversant Neck: No JVD Cardiac: Reg Rate and Rhythm, Normal S1 and S2, No Murmur Lungs: Normal Breath Sounds, No Wheeze, Rales, Rhonchi Neuro: Alert and responsive, No focal deficits noted Abdomen: Soft Extremities: No Edema, Normal Pulses Results 12/03/17 23:25 12/03/17 23:25 Lab Results 12/04/17 04:44 Troponin I < 0.03 Consult Discharge Plan - Plan Referrals: Ari Shine Jr, MD [Primary Care Provider] -
--- NOTE | 2017-12-04 12:37 | Event Note ---
Date of Encounter: 12/04/17 Time of Encounter: 09:00 Patient was seen and examined. Patient states he has palpitation for about 3 months. Patient was started Cardizem for palpitation and he said he feel dizzy only when he takes Cardizem. Physical exam is unremarkable except paroxysmal tachycardia. Cardiology consult appreciated. Will hold Cardizem, increased dose of metoprolol and continue closely monitor patient.
[2017-12-04 13:07] LABS: Bilirubin,Urine Negative (Negative); Blood,Urine Negative (Negative); Clarity,Urine Clear (Clear); Color,Urine Yellow (Yellow); Glucose,Urine (UA) Normal (Normal); Ketones,Urine Negative (Negative); Leukocyte Esterase,Urine Trace (Negative); Nitrite,Urine Negative (Negative); PH,Urine 7.5 pH Units (5.0-8.0); Protein,Urine Negative (Neg-Trace); Specific Gravity,Urine 1.006 (1.010-1.025); Urobilinogen,Urine Normal (Normal)
[2017-12-04 13:10] LABS: Bacteria,Urine None Seen per hpf (None-Few); Hyaline Casts,Urine None Seen per lpf (None-Few); RBC,Urine 0-3 per hpf (0-3); Squamous Epithelial Cell,Urine Few per lpf (None-Few)
--- NOTE | 2017-12-04 15:12 | Electrocardiograph Report ---
[place] [id number] Test Date: 2017-12-03 Pat Name: Jaguar Craven Department: EXAM5 Room: 2NE16 Gender: M Chargeback Specialist: : 1930 Requested By: Enrique Chun Order Number: [id number] Reading MD: Broderick Gamboa Measurements Intervals [place] Rate: 59 P: 53 [place]: 195 QRS: 55 QRSD: 104 T: 3 QT: 400 QTc: 397 Interpretive Statements Sinus rhythm Inferior infarct, age indeterminate Nonspecific ST depression Electronically Signed On 12-04-2017 15:11:11 EDT by Broderick Gamboa
--- NOTE | 2017-12-04 15:40 | Electrocardiograph Report ---
[address] [place] [address] Test Date: 2017-12-04 Pat Name: Jaguar Craven Department: EXAM5 Room: 2NE16 Gender: M Pattern Technician: : 1930 Requested By: Fabiola Valles Order Number: [id number] Reading MD: Tiffany Costa Measurements Intervals [place] Rate: 63 P: 18 [place]: 204 QRS: 75 QRSD: 102 T: 25 QT: 424 QTc: 434 Interpretive Statements Sinus rhythm Nonspecific ST-T abnormalities Possible old inferior [place] Electronically Signed On 12-04-2017 15:38:37 EDT by Tiffany Costa
--- NOTE | 2017-12-04 15:43 | Electrocardiograph Report ---
[place] [id number] Test Date: 2017-12-04 Pat Name: Jaguar Craven Department: 111 Room: 2NE16 Gender: M Revenue Stamper: JUANJO : 1930 Requested By: Fabiola Valles Order Number: [id number] Reading MD: Tiffany Costa Measurements Intervals [place] Rate: 57 P: 98 [place]: 182 QRS: 54 QRSD: 98 T: 38 QT: 423 QTc: 418 Interpretive Statements SINUS BRADYCARDIA MODERATE ST DEPRESSION Electronically Signed On 12-04-2017 15:41:34 EDT by Tiffany Costa
[2017-12-05] MEDS: *HR* Heparin 5,000 UNIT/ML VIAL SQ SCH (06:14)
[2017-12-05] MEDS: Aspirin Enteric Coated 81 MG Tablet PO SCH (09:05)
[2017-12-05] MEDS: Metoprolol XL (24 HR) Succ 25 MG TAB.ER.24H PO SCH (10:25)
[2017-12-05 11:20] VITALS: BP 182/87
--- NOTE | 2017-12-05 11:28 | Discharge Summary ---
- NOTES TO OUTPATIENT PROVIDER Notes to Outpatient Provider: Pt's home meds adjusted per cardio: D/C cardizem and increase metoprolol xl to 50mg po daily. Orders not resulted at time of discharge: Pending orders 12/04/17 08:30 ECG 12 lead ECG [ECG] Stat Date of Encounter: 12/05/17 Time of Encounter: 10:00 - Discharge Diagnosis (1) Hypertension Priority: Secondary Status: Chronic Qualifiers: Hypertension type: essential hypertension Qualified Code(s): I10 - Essential (primary) hypertension (2) Dyslipidemia Priority: Secondary Status: Chronic (3) Coronary artery disease Priority: Secondary Status: Chronic Qualifiers: Coronary Disease-Associated Artery/Lesion type: [place] artery [place] vs. transplanted heart: [place] heart Associated angina: without angina Qualified Code(s): I25.10 - Atherosclerotic heart disease of [place] coronary artery without angina pectoris (4) Palpitations Priority: Primary Status: Acute (5) Anemia Priority: Secondary Status: Chronic Qualifiers: Anemia type: iron deficiency Iron deficiency anemia type: chronic blood loss Qualified Code(s): D50.0 - Iron deficiency anemia secondary to blood loss (chronic) Hospital course: Mr. Craven is a 87 year old male presented to ER for palpitation. Past medical history is significant for CAD. Patient denies chest pain. 2 sets of troponin negative. Echo shows moderate diastolic dysfunction, otherwise unremarkable. Cardiac monitoring shows paroxysmal atrial tachycardia. Patient said he has this problem for several months. Patient also complaining of dizziness after taking Cardizem. Cardiology consult saw patient. Recommend change to metoprolol XL 50mg po daily, DC Cardizem. I saw patient this morning. Patient denies chest pain or shortness of breath. Denies further dizziness/lightheaded overnight on the new dose of med. Generally tolerate metoprolol well, no hypotension. Heart rate varies from 50 to 110 because of paroxysmal atrial tachycardia. BP ranges 117/73 to 164/80. Will discharge patient home today and continue follow-up with cardiology as outpatient. - Time Spent with Patient Total time spent providing and/or coordinating discharge services: 25 min Less than 30 minutes - Discharge Medications Prescriptions: Metoprolol XL (24 HR) Succ [Toprol Xl] 50 mg PO DAILY 30 Days #60 tab.er.24h Home Medications: Nitroglycerin [Nitrostat] 0.4 mg SL Q5M PRN 06/04/17 [History] Simvastatin [Zocor] 20 mg PO HS 06/04/17 [History] Aspirin [Adult Aspirin Regimen] 81 mg PO DAILY #30 tablet. 06/06/17 [Rx] Metoprolol XL (24 HR) Succ [Toprol Xl] 50 mg PO DAILY 30 Days #60 tab.er.24h [Rx] Allergies/Adverse Reactions: 3 Allergy/AdvReac Type Severity Reaction Status Date / Time No Known Allergies Allergy Verified 12/04/17 08:38 Date of admission: 12/04/17 01:54 Primary care physician: Ari Shine Jr, MD Consults: 12/04/17 03:44 Consult to Cardiology [CONS] Routine Comment: Consulting Provider: Cardiology Tow Reason for Consult: patient admitted for palpitations leading to pre- syncopal symptoms. Has been occurring for months. Assess need for Holter monitoring. Call Completed: No Discharging clinician: Mile Iniguez Anticipated date of discharge: 12/05/17 - Constitutional Vitals: Temp Pulse Resp BP Pulse Ox 98.0 F 53 20 182/87 95 12/05/17 11:16 12/05/17 11:16 12/05/17 11:16 12/05/17 11:16 12/05/17 11:16 General appearance: Present: A&O X 3, no acute distress, answers questions appropriately Exam: in NAD - Head Head exam: Present: atraumatic, normocephalic - Eye Eye exam: Present: PERRL, conjuntiva pink, sclera anicteric Pupils: Present: PERRL - Neck Neck exam general surgery: Present: supple, trachea midline. Absent: lymphadenopathy - Respiratory Respiratory exam: Present: CTAB. Absent: accessory muscle use, rales, rhonchi, wheezes - Cardiovascular Cardiovascular exam: Present: irregular rhythm, +S1, +S2. Absent: diastolic murmur, gallop, rubs, systolic murmur - GI/Abdominal GI/Abdominal exam: Present: normal bowel sounds, soft, no peritoneal signs. Absent: distended, tenderness - Extremities Exam Extremities exam: Present: warm, radial pulses palpable and symmetrical. Absent : calf tenderness, cyanotic, pedal edema - Neurological Exam Neurological exam: Present: CN II-XII intact, oriented X3, no focal deficits. Absent: pronater drift, facial droop, speech deficit - Skin Skin exam: Present: dry, intact - Patient Status Disposition: Home, Self-Care Condition: Fair Functional capacity at discharge: independent ambulation Overall status at discharge: patient is back to baseline - Discharge Instructions Follow Up With: Ari Shine Jr, MD [Primary Care Provider] - 12/12/17 2:30 pm - Diet and Activity Activity: increase activity as tolerated Diet: low fat, low cholesterol, low salt diet
--- NOTE | 2017-12-05 12:09 | Cardiology Progress Note ---
Date of Encounter: 12/05/17 Time of Encounter: 10:30 Assessment and Plan (1) PAT (paroxysmal atrial tachycardia) Current Visit: No Status: Resolved Per cardiology: -Patient with known history of paroxysmal atrial tachycardia who does not seem to be able to tolerate Cardizem. -BB was increased yesterday. Average HR noted to eb 58. Did have 3.3 second nocturnal pause. Discussed and reviewed with Dr.John Castañeda, continue increased dose of BB. -TTE with LVEF preserved, no segmental wall motion abnormalities noted. -Cardiology will sign off, will arrange outpatient appt with EP. (2) CAD (coronary artery disease) Current Visit: No Status: Chronic Per cardiology: -Denies chest pain. -Continue Asa, statin, bb. Qualifiers: Coronary Disease-Associated Artery/Lesion type: [place] artery [place] vs. transplanted heart: [place] heart Associated angina: without angina Qualified Code(s): I25.10 - Atherosclerotic heart disease of [place] coronary artery without angina pectoris Discussion w patient/family: The assessment and plan as outlined above was discussed with the patient who expressed understanding and agreement. All questions were answered. Thank you for involving us in the care of your patient. Please call with any questions. Discussed and reviewed with and Dr.John Castañeda. Subjective Principal diagnosis: PAT Interval history: Patient states he feels fine today. Denies complaints. Denies dizziness, lightheadedness Objective Vital Signs, Last 4 Hours Temp Pulse Resp BP Pulse Ox 12/05/17 11:16 98.0 F 53 20 182/87 95 12/05/17 08:25 96.8 F L 56 20 142/88 97 General: Conversant, No Apparent Distress HEENT: Atraumatic, Normocephaly, Mucus Membranes Moist Neck: No JVD, Normal carotid pulses Cardiac: Reg Rate and Rhythm, Normal S1 and S2, No Murmur Lungs: Normal Breath Sounds, No Wheeze, Rales, Rhonchi Neuro: Alert and responsive, No focal deficits noted Abdomen: Soft, Non-Tender Skin: No rashes noted on visualized skin Musculoskeletal: No Chest Wall Tenderness Extremities: No Clubbing, No Cyanosis, No Edema, Normal Pulses Results 12/03/17 23:25 12/03/17 23:25 Impressions Echocardiogram 12/04/17 03:44 Impressions: LVEF 60%. Normal LV chamber size, wall thickness and overall normal function. Moderate left ventricular diastolic dysfunction. Normal right ventricular structure and function. Mild tricuspid regurgitation. No pulmonary hypertension. Left Ventricular Wall Motion: Rest Echo Findings The basal inferior wall was hypokinetic. All other wall segments showed normal motion. Findings: Study Quality * Technically adequate exam. ECG Findings * Normal sinus rhythm. Left Ventricle * LVEF 60%. * Normal LV chamber size, wall thickness and function. * Moderate left ventricular diastolic dysfunction. Right Ventricle * Normal right ventricular structure and function. Left Atrium * Moderately dilated left atrium. Right Atrium * Mildly dilated right atrium. Aortic Valve * Trileaflet aortic valve. * Mildly sclerotic aortic valve leaflets. * No aortic regurgitation. * No aortic stenosis. Mitral Valve * Normal mitral valve structure and function. * No mitral stenosis. * Trace mitral regurgitation. Tricuspid Valve * Normal tricuspid valve structure. * Mild tricuspid regurgitation. * No pulmonary hypertension. Pulmonic Valve * Normal pulmonic valve structure and function. * Trace pulmonic regurgitation. Aorta * Normally sized aortic root. Pericardium * The pericardium appears normal. IVC * Normal IVC dimensions and inspiratory collapse. Pulmonary Artery * Normal visualized portions of the main pulmonary artery. Active Medications Aspirin (Aspirin Ec) 81 mg PO DAILY [facility] Stop: 06/05/18 09:01 Last Admin: 12/05/17 09:05 Dose: 81 mg Heparin Sodium (Porcine) (Heparin) 5,000 unit SQ Q8HCO [facility] Stop: 06/05/18 06:01 Last Admin: 12/05/17 06:14 Dose: 5,000 unit Metoprolol Succinate (Toprol Xl) 50 mg PO DAILY [facility] Stop: 06/05/18 10:16 Last Admin: 12/05/17 10:25 Dose: 50 mg Simvastatin (Zocor) 20 mg PO HS [facility] PRN Reason: Protocol Stop: 06/05/18 21:01 Last Admin: 12/04/17 21:59 Dose: 20 mg - Imaging and Cardiology Chest Xray: report reviewed Echo: report reviewed - EKG Interpretation EKG results cardiology: other (Telemetry reviewed with average HR previous 12 hours noted to be 58, paroxysmal atrial tachycardia. Nocturnal pauses noted, longest 3.3 seconds.) Consult Discharge Plan - Plan Referrals: Ari Shine Jr, MD [Primary Care Provider] - 12/12/17 2:30 pm Prescriptions: Metoprolol XL (24 HR) Succ [Toprol Xl] 50 mg PO DAILY 30 Days #60 tab.er.24h
--- NOTE | 2017-12-06 08:26 | Electrocardiograph Report ---
[place] [id number] Test Date: 2017-12-04 Pat Name: Jaguar Craven Department: 111 Room: [id number] Gender: [employer] Operator: GARY : 1930 Requested By: Mile Iniugez Order Number: [id number] Reading MD: Pillo Kaufman Measurements Intervals Transfer Rate: 73 P: AK: 0 QRS: 41 QRSD: 97 T: 39 QT: 399 QTc: 425 Interpretive Statements Sinus rhythm with sinus arrhythmia Brief SVT Electronically Signed On 12-06-2017 8:25:18 EDT by Pillo Kaufman
== END 2017-12-05 13:40 | disposition home or self-care (01) ==
LOC: EMEROOARM 23:00 → 2NENU 23:00
PROVIDERS: ADMIT Internal Medicine; ATTEND Internal Medicine